=== PATIENT | female | born 1990 | race Caucasian/White ===

== ENCOUNTER 2017-12-31 13:36 | Emergency (ER) | payer MEDICAID ==
[~2017-12-31] VITALS: Ht 167.6 cm; Wt 63.5 kg
[~2017-12-31 13:36] MED LIST: DOCU-143 PO; ESCI10TA PO; HYDR-3720 PO; IBP800T PO; IBUP-1780 PO; PREN1TAB39 PO
[2017-12-31] MEDS ORDERED: CLIN300C11 (13:55)
--- NOTE | 2017-12-31 14:40 | ED EENT ---
History of Present Illness General Chief Complaint: Dental Problems/Pain Stated Complaint: DENTAL PAIN Nursing Triage Note: TO ROOM WITH MOTHER HAS BEEN TREATED WITH TOOTH ACHE WITH CLINDAMYCIN CON'T TO HAVE PAIN AND SELLING IN FACE. HAS APPOINTMENT ON JANUARY 12 WITH DENTIST. Source: patient, family Exam Limitations: no limitations (YOHANNES GREENE) History of Present Illness Date Seen by Provider: Dec 31, 2017 Time Seen by Provider: 14:37 Initial Comments Patient is a 27-year-old female who presents to the emergency room with right upper dental pain. The patient is currently on a course of clindamycin she is on day 5 of 7 days. She has an appointment on the for dental extractions. She reports that last night her tooth broke off more causing her more pain. Timing/Duration: abrupt, yesterday Severity: mild Location: dental Prearrival Treatment: over the counter meds Associated Symptoms: No denies symptoms, No change in hearing, No cough; facial pain/swelling (YOHANNES GREENE) Allergies and Home Medications Allergies Coded Allergies: Codeine (Unverified Allergy, Unknown, 03/19/10) Erythromycin Base (Unverified Allergy, Unknown, 03/19/10) Penicillins (Verified Allergy, Unknown, 03/19/10) Uncoded Allergies: BEE STINGS (Allergy, Unknown, 03/19/10) Home Medications Escitalopram Oxalate 10 Mg Tablet, 10 MG PO DAILY, (Reported) Patient Home Medication List Home Medication List Reviewed: Yes (YOHANNES GREENE) Review of Systems Constitutional: see HPI; No chills, No fever Eyes: See HPI; Denies Blindness; Blurred Vision; Denies Photophobia, Denies Other (denies double vision) Ears: See HPI; Denies Pain Nose: see HPI; denies clots, denies congestion, denies epistaxis, denies pain Mouth: see HPI, pain, swelling Throat: see HPI; denies pain Respiratory: see HPI; No cough, No dyspnea on exertion Cardiovascular: see HPI; No chest pain Gastrointestinal: see HPI Musculoskeletal: see HPI; No back pain, No gout Skin: see HPI; No change in color Neurological: Denies Anxiety Hematologic/Lymphatic: See HPI; Denies Anemia Immunological/Allergic: see HPI; denies food allergy (YOHANNES GREENE) All Other Systems Reviewed Negative Unless Noted: Yes (BERNOT,YOHANNES STUDENT) Past Rizatfe-Wamdpr-Yjoyga Hx Past Med/Social Hx: Reviewed Nursing Past Med/Soc Hx (YOHANNES GREENE) Patient Social History Alcohol Use: Denies Use Recreational Drug Use: No Smoking Status: Never a Smoker Recent Foreign Travel: No Contact w/Someone Who Travel: No Recent Infectious Disease Expo: No Recent Hopitalizations: No (YOHANNES GREENE) Immunizations Up To Date Tetanus Booster (TDap): More than 5yrs PED Vaccines UTD: Yes (YOHANNES GREENE) Past Medical History Surgeries: Yes Appendectomy, Gallbladder, Tonsillectomy Respiratory: Yes Asthma Cardiac: No Neurological: No Reproductive Disorders: No Female Reproductive Disorders: Denies Sexually Transmitted Disease: No HIV/AIDS: No Gastrointestinal: No Musculoskeletal: No Endocrine: No Cancer: No Psychosocial: Yes Anxiety, Depression Integumentary: No Blood Disorders: No Adverse Reaction/Blood Tranf: No (YOHANNES GREENE) Family Medical History Reviewed Nursing Family Hx (YOHANNES GREENE) Seizure disorder 09 BROTHER, Onset:5 Physical Exam Vital Signs Vital Signs - First Documented 12/31/17 13:46 Temp 97.0 Pulse 79 Resp 18 B/P (MAP) 109/61 (77) Pulse Ox 99 O2 Delivery Room Air (YEE MARIE MD) General Appearance: WD/WN, no apparent distress Eyes: bilateral eye normal inspection, bilateral eye PERRL, bilateral eye EOMI Ears: bilateral ear auricle normal, bilateral ear canal normal, bilateral ear TM normal Nose: normal inspection, sinus tenderness Mouth/Throat: dental tenderness, other (dental caries and broken teeth on the right upper) Neck: non-tender, full range of motion Cardiovascular: normal peripheral pulses, regular rate, rhythm, no edema, no gallop Respiratory: chest non-tender, lungs clear, normal breath sounds Gastrointestinal: normal bowel sounds, non tender Neurologic/Psychiatric: alert, normal mood/affect, oriented x 3 Skin: normal color, warm/dry (YOHANNES GREENE STUDENT) Progress/Results/Core Measures Results/Orders Medications Given in ED Current Medications Medications Dose Ordered Sig/Josefina Route Start Time Stop Time Status Last Admin Dose Admin Benzocaine 1 ea ONCE ONCE XX 12/31/17 14:45 12/31/17 14:46 DC 12/31/17 15:26 1 EA Lidocaine HCl 5 ml ONCE ONCE PO 12/31/17 14:45 12/31/17 14:46 DC 12/31/17 15:26 5 ML (YEE MARIE MD) Vital Signs/I&O 12/31/17 13:46 Temp 97.0 Pulse 79 Resp 18 B/P (MAP) 109/61 (77) Pulse Ox 99 O2 Delivery Room Air (YEE MARIE MD) Blood Pressure Mean: 77 Progress Progress Note : Progress Note I have personally seen, interviewed and examined this patient along with Yohannes Greene APRN. I agree with his history, exam, assessment, and plan with the following additions. This patient is presently on clindamycin for pain related to dental decay in the right upper mouth. She has extraction scheduled for January 12. She has persistent significant pain despite treatment with antibiotics and use of ibuprofen, Aleve, and Tylenol. She has some mild blurry vision of the right eye but no diplopia and no impairment of extraocular movement. There is no erythema, heat, or significant edema around the right eye or maxilla. Oral exam shows severely decayed right upper teeth but no overt abscess. She is afebrile. Plan is to continue with antibiotics until the date of surgery. We will extend her prescription out until that time. Topical anesthetic will be trialed. Return precautions were discussed with patient. Exam is as follows: Gen.: Alert, oriented, no acute distress HEENT: normocephalic and atraumatic, tympanic membranes normal, no significant tenderness over the maxillary sinus, extraocular movements intact, vision grossly intact, severely decayed teeth in the upper mouth with out overt abscess Heart: Regular rate and rhythm without murmur Lungs: Clear to auscultation bilaterally with normal effort Lymph: No palpable periauricular or cervical lymph nodes (YEE MARIE MD) Departure Impression Primary Impression: Dental caries Disposition: 01 HOME, SELF-CARE Condition: Stable/Unchanged Departure-Patient Inst. Decision time for Depature: 15:56 (YOHANNES GREENE STUDENT) Referrals: [facility] (PCP/Family) Primary Care Physician Patient Instructions: Fractured Tooth (DC), Dental Pain (DC) Add. Discharge Instructions: Take medications as directed, follow up with your primary care provider within one week, call tomorrow morning for appointment time. When using the gauze pads that were provided in the emergency room do not fall asleep with one-year mouth as it could be a choking hazard and be careful when eating because more than your teeth might be numb and you could bite yourself. Return back to the emergency room for worsening pain, bleeding, swelling, or any other concerns as needed. All discharge instructions reviewed with patient and/or family. Voiced understanding. Images Mouth/Nose 1 - Caries, Fracture Tooth 2 - Caries, Fracture Tooth (YOHANNES GREENE STUDENT) YOHANNES GREENE Dec 31, 2017 14:40 YEE MARIE MD Dec 31, 2017 15:01
[2017-12-31] MEDS ORDERED: HURRICAINE EXT TUBE (BENZOCAINE) XX ONE (14:45)
[2017-12-31] MEDS ORDERED: LIDOCAINE 2% VISCOUS 15 ML UDC PO ONE (14:45)
[2017-12-31 16:05] VITALS: BP 109/74
== END 2017-12-31 16:05 | disposition home or self-care (01) ==
LOC: EDUNIT# 13:36 → ER 13:38
DX: K02.9 Dental caries, unspecified (principal); J45.909 Unspecified asthma, uncomplicated; F41.9 Anxiety disorder, unspecified; F32.9 Major depressive disorder, single episode, unspecified; Z88.5 Allergy status to narcotic agent; Z88.0 Allergy status to penicillin; Z90.89 Acquired absence of other organs
CPT/HCPCS: 99283

== ENCOUNTER 2018-02-21 15:09 | Emergency (ER) | payer MEDICAID ==
[~2018-02-21] VITALS: Ht 167.6 cm; Wt 65.8 kg
[~2018-02-21 15:09] MED LIST changes: +CLIN300C11
[2018-02-21] MEDS ORDERED: NS IV 1000 ML 1,000 ML IV ONE (16:17)
[2018-02-21 16:27] LABS: BASOPHILS % (AUTO) 0 % (0-10); EOSINOPHILS # (AUTO) 0.1 10^3/uL (0.0-0.3); EOSINOPHILS % (AUTO) 1 % (0-10); HEMATOCRIT 37 % (35-52); HEMOGLOBIN 13.2 G/DL (11.5-16.0); LYMPHOCYTES # (AUTO) 1.7 X 10^3 (1.0-4.0); LYMPHOCYTES % (AUTO) 19 % (12-44); MEAN CORPUSCULAR HEMOGLOBIN 30 PG (25-34); MEAN CORPUSCULAR HGB CONC 36 G/DL (32-36); MEAN CORPUSCULAR VOLUME 83 FL (80-99); MEAN PLATELET VOLUME 11.9 FL (7.4-10.4); MONOCYTES # (AUTO) 0.5 X 10^3 (0.0-1.0); MONOCYTES % (AUTO) 6 % (0-12); NEUTROPHILS # (AUTO) 6.5 X 10^3 (1.8-7.8); NEUTROPHILS % (AUTO) 74 % (42-75); PLATELET COUNT 180 10^3/uL (130-400); RED BLOOD COUNT 4.46 10^6/uL (4.35-5.85); RED CELL DISTRIBUTION WIDTH 13.8 % (10.0-14.5); WHITE BLOOD COUNT 8.9 10^3/uL (4.3-11.0)
--- NOTE | 2018-02-21 16:34 | ED EENT ---
History of Present Illness General Chief Complaint: Facial Problems Stated Complaint: FACE INFECTION Nursing Triage Note: PT AMB TO ROOM #6 W/O DIFFICULTY. A&OX4. CO FACIAL CYST SWELLING. PT REPORTS IN 2016 SHE NOTICED FACIAL SWELLINFG UNDER RT EYE WHICH SHE RECENTLY FOUND OUT TO BE A CYST IN HER SINUS. PT REPORTS SHE BEGAN TO HAVE SWELLING NOTED TO CYST AREA (UNDER RT EYE) ON 02/19/18 THAT HAS BEEN STEADILY INCREASING SINCE. PT WAS SEEN A [facility] DENTAL OFFICE THIS AFTER NOON AND DENTIST REFERRED HER TO COME TO ED, AND THAT IS WAS NOTHING DENTAL REALTED. PT REPORTS XRAYS OF MOUTH WERE TAKEN. PT DENIES PAIN TO AREA. AREA NOTED TO BE SWOLLEN AND RAISED. PT REPORTS VISUAL CHANGES SINCE AREA HAS BEGAN TO INCREASE IN SIZE. DENIES RECENT FEVER OR CHILLS. Source: patient, family (Mother) (YEE YATES STUDENT) History of Present Illness Date Seen by Provider: Feb 21, 2018 Time Seen by Provider: 16:09 Initial Comments Seen and evaluated. Patient presents with facial swelling under right eye that began late on 02/19 that she noticed significantly worsened overnight from 02/20-02/21. Patient reports that for the last year she has had increased right facial pain with seasonal allergies or colds. She came to the ED in late December due to dental pain and was informed at this visit that she had a right sinus abscess. Upon awakening with increased facial swelling this morning, she went to her dentist who took facial xrays, informed her that she had dental carries significant enough to necessitate tooth extraction in the near future but no dental abscesses, and told her to come to the ED. Patient admits to transient blurriness and loss of vision, fatigue all day, lightheadedness, the sensation of sinus fullness on the right, tenderness to palpation of right maxillary sinus area, tenderness to palpation of right ear. Patient's mother states that the patient has acted with decreased mental acuity all day. Patient says that symptoms worsen when she coughs, flexes forward, and with other changes of position. Symptoms improve with rest. Timing/Duration: this morning Severity: moderate Location: eye (R) Prearrival Treatment: no prearrival treatment Modifying Factors: Worse With Activity, Worse With Coughing; Improves With Lying Down, Improves With Rest Associated Symptoms: facial pain/swelling; No fever; tooth pain (TRUDY,YEE MED STUDENT) Allergies and Home Medications Allergies Coded Allergies: Codeine (Unverified Allergy, Unknown, 03/19/10) Erythromycin Base (Unverified Allergy, Unknown, 03/19/10) Penicillins (Verified Allergy, Unknown, 03/19/10) Uncoded Allergies: BEE STINGS (Allergy, Unknown, 03/19/10) Home Medications Escitalopram Oxalate 10 Mg Tablet, 10 MG PO DAILY, (Reported) Patient Home Medication List Home Medication List Reviewed: Yes (YEE YATES) Home Medication List Reviewed: Yes (HAROON OJEDA MD) Review of Systems Eyes: Blurred Vision, Photophobia, Vision Changes Ears: Pain (Pain in right ear ) Nose: no symptoms reported Throat: no symptoms reported Respiratory: no symptoms reported Cardiovascular: no symptoms reported Gastrointestinal: no symptoms reported Skin: see HPI Neurological: No Symptoms Reported Hematologic/Lymphatic: No Symptoms Reported (YEE YATES) Constitutional: No chills, No fever Eyes: Other (swelling around the right eye and cheek.) Mouth: pain, swelling Throat: denies pain, denies swelling (HAROON OJEDA MD) All Other Systems Reviewed Negative Unless Noted: Yes (HAROON OJEDA MD) Past Zzurvco-Qgoogd-Jviiwi Hx Past Med/Social Hx: Reviewed Nursing Past Med/Soc Hx (HAROON OJEDA MD) Patient Social History Alcohol Use: Denies Use Recreational Drug Use: No Smoking Status: Former Smoker Type Used: Cigarettes 2nd Hand Smoke Exposure: No Recent Foreign Travel: No Contact w/Someone Who Travel: No Recent Infectious Disease Expo: No Recent Hopitalizations: No Physical Abuse: No Sexual Abuse: No (YEE YATES) Immunizations Up To Date Tetanus Booster (TDap): More than 5yrs PED Vaccines UTD: Yes (YEE YATES) Past Medical History Surgeries: Yes Appendectomy, Gallbladder, Tonsillectomy Respiratory: Yes Asthma Cardiac: Yes Syncope (Syncopal episodes when riding rollercoasters) Neurological: No Reproductive Disorders: No Female Reproductive Disorders: Denies Sexually Transmitted Disease: No HIV/AIDS: No Gastrointestinal: No Musculoskeletal: No Endocrine: No Cancer: No Psychosocial: Yes Anxiety, Depression Nursing Suicide Risk Score: 0 Integumentary: No Blood Disorders: No Adverse Reaction/Blood Tranf: No (YEE YATES STUDENT) Family Medical History Reviewed Nursing Family Hx (HAROON OJEDA MD) Seizure disorder 09 BROTHER, Onset:5 Heart Disease, Diabetes, Lung Disease (YEE YATES STUDENT) Physical Exam Vital Signs Vital Signs - First Documented 02/21/18 15:40 Temp 97.9 Pulse 68 Resp 16 B/P (MAP) 122/73 (89) Pulse Ox 100 O2 Delivery Room Air (HAROON OJEDA MD) Height, Weight, BMI Height: 5'6.00" Weight: 145lbs. oz. 65.415940ew; 25.18 BMI Method:Stated General Appearance: mild distress Eyes: left eye normal inspection; bilateral eye PERRL, bilateral eye EOMI, bilateral eye vision changes Ears: right ear TM red; left ear auricle normal (Right auricle tender to palpation), left ear TM normal Nose: normal inspection Mouth/Throat: pharynx normal, dental tenderness, other (Dental carries right upper teeth) Cardiovascular: normal peripheral pulses, regular rate, rhythm, no edema, no gallop, no murmur Respiratory: chest non-tender, lungs clear, normal breath sounds, no respiratory distress, no accessory muscle use Gastrointestinal: normal bowel sounds, non tender, soft, no organomegaly, no pulsatile mass, tenderness, spleenomegaly (YEE YATES STUDENT) General Appearance: WD/WN Eyes: right eye other (swelling of the lower lid and cheek on the right with mild erythema.) Mouth/Throat: other (Dental carries right upper teeth near canines and premolar ) Neck: full range of motion, supple Cardiovascular: regular rate, rhythm, no murmur Respiratory: lungs clear, normal breath sounds Neurologic/Psychiatric: alert, oriented x 3 Skin: warm/dry, other (swelling to the right cheek and right lower lid with some edema and mild erythema but does not cross to the lip or nose.) (HAROON OJEDA MD) Progress/Results/Core Measures Results/Orders Lab Results Laboratory Tests Test 02/21/18 15:55 Range/Units White Blood Count 8.9 4.3-11.0 10^3/uL Red Blood Count 4.46 4.35-5.85 10^6/uL Hemoglobin 13.2 11.5-16.0 G/DL Hematocrit 37 35-52 % Mean Corpuscular Volume 83 80-99 FL Mean Corpuscular Hemoglobin 30 25-34 PG Mean Corpuscular Hemoglobin Concent 36 32-36 G/DL Red Cell Distribution Width 13.8 10.0-14.5 % Platelet Count 180 130-400 10^3/uL Mean Platelet Volume 11.9 H 7.4-10.4 FL Neutrophils (%) (Auto) 74 42-75 % Lymphocytes (%) (Auto) 19 12-44 % Monocytes (%) (Auto) 6 0-12 % Eosinophils (%) (Auto) 1 0-10 % Basophils (%) (Auto) 0 0-10 % Neutrophils # (Auto) 6.5 1.8-7.8 X 10^3 Lymphocytes # (Auto) 1.7 1.0-4.0 X 10^3 Monocytes # (Auto) 0.5 0.0-1.0 X 10^3 Eosinophils # (Auto) 0.1 0.0-0.3 10^3/uL Basophils # (Auto) 0.0 0.0-0.1 10^3/uL Sodium Level 140 135-145 MMOL/L Potassium Level 3.6 3.6-5.0 MMOL/L Chloride Level 107 98-107 MMOL/L Carbon Dioxide Level 27 21-32 MMOL/L Anion Gap 6 5-14 MMOL/L Blood Urea Nitrogen 9 7-18 MG/DL Creatinine 0.76 0.60-1.30 MG/DL Estimat Glomerular Filtration Rate > 60 BUN/Creatinine Ratio 12 Glucose Level 102 70-105 MG/DL Calcium Level 9.9 8.5-10.1 MG/DL Corrected Calcium 9.6 8.5-10.1 MG/DL Total Bilirubin 0.6 0.1-1.0 MG/DL Aspartate Amino Transf (AST/SGOT) 14 5-34 U/L Alanine Aminotransferase (ALT/SGPT) < 6 0-55 U/L Alkaline Phosphatase 47 40-136 U/L C-Reactive Protein High Sensitivity 0.57 H 0.00-0.50 MG/DL Total Protein 6.9 6.4-8.2 GM/DL Albumin 4.4 3.2-4.5 GM/DL (HAROON OJEDA MD) My Orders Orders - HAROON OJEDA MD Cbc With Automated Diff (8/8/18 16:17) Comprehensive Metabolic Panel (02/21/18 16:17) Hs C Reactive Protein (02/21/18 16:17) Saline Lock/Iv-Start (02/21/18 16:17) Ns Iv 1000 Ml (Sodium Chloride 0.9%) (02/21/18 16:17) Urine Bedside (02/21/18 16:18) Ct Maxillofacial W (02/21/18 16:26) Iohexol Injection (Omnipaque 350 Mg/Ml 1 (02/21/18 16:45) Ns (Ivpb) (Sodium Chloride 0.9%) (02/21/18 16:45) Ceftriaxone Injection (Rocephin Injectio (02/21/18 17:45) Hydrocodone/Apap 5/325 Tablet (Lortab 5 (02/21/18 17:40) Ketorolac Injection (Toradol Injection) (02/21/18 17:40) (HAROON OJEDA MD) Medications Given in ED Current Medications Medications Dose Ordered Sig/Josefina Route Start Time Stop Time Status Last Admin Dose Admin Ceftriaxone Sodium 1000 mg/ Sodium Chloride 50 ml @ 100 mls/hr ONCE ONCE IV 02/21/18 17:45 02/21/18 18:14 DC 02/21/18 17:50 100 MLS/HR Iohexol 80 ml ONCE ONCE IV 02/21/18 16:45 02/21/18 16:46 DC 02/21/18 16:49 80 ML Sodium Chloride 250 ml ONCE ONCE IV 02/21/18 16:45 02/21/18 16:46 DC 02/21/18 16:49 80 ML Sodium Chloride 1,000 ml @ 0 mls/hr Q0M ONCE IV 02/21/18 16:17 02/21/18 16:19 DC 02/21/18 16:33 1,000 MLS/HR (HAROON OJEDA MD) Vital Signs/I&O 02/21/18 15:40 Temp 97.9 Pulse 68 Resp 16 B/P (MAP) 122/73 (89) Pulse Ox 100 O2 Delivery Room Air (HAROON OJEDA MD) Blood Pressure Mean: 89 Progress Progress Note : Progress Note I have seen and evaluated patient and agree with above except as indicated. Have directed the plan of care. Patient here with swelling to the right cheek and eyelid since yesterday and feels like it's worsening. Seen the dentist today in preparation for extraction to the teeth that are involved in the right upper involving the canine premolar area. They instructed her to come to the hospital for evaluation and treatment as indicated related to what was concerning for facial cellulitis. IV, labs and CT of the face was ordered after evaluation as above. Labs do not indicate any significant systemic infection and CT is as noted below. We will give Rocephin 1 g IV now and continue outpatient therapy with Omnicef. This was discussed with the patient who agrees. Patient was given Toradol and a hydrocodone tablet for pain. Discharged home with return precautions. Patient verbalize understanding instructions and agreement with plan. (HAROON OJEDA MD) Diagnostic Imaging Diagonstic Imaging: CT Plain Films/CT/US/NM/MRI: other Comments VIA [facility]. [place], [place] NAME: [facility] REC#: [id number] PT STATUS: REG ER : 1990 PHYSICIAN: HAROON OJEDA MD ADMIT DATE: 02/21/18/ER Draft Date of Exam:02/21/18 CT MAXILLOFACIAL W PROCEDURE: CT maxillofacial with contrast. TECHNIQUE: After intravenous administration of contrast, axial images were obtained through the face and reformatted into coronal and sagittal planes. INDICATION: Face infection, facial cyst swelling. COMPARISON: None. FINDINGS: No acute fracture is seen in the face. The zygomatic arches, pterygoid plates, orbits, and maxillary sinuses are intact. The mandible appears intact. No cortical erosion is seen. There is moderate focal soft tissue edema at the right infraorbital region, and extending down the right cheek. No drainable fluid collection is seen by CT. A small focus of gas seen is thought to be beneath the eyelid. No significant post septal inflammatory changes are seen at this time. The globe is intact. There is moderate mucosal thickening in the bilateral maxillary sinuses and mild in the sphenoid and right posterior ethmoid sinuses. IMPRESSION: 1. Moderate focal soft tissue edema in the right infraorbital region, extending down the right cheek. No drainable fluid collection or post septal inflammatory changes seen. No osseous erosion is seen. 2. Moderate mucosal thickening in the paranasal sinuses as described above. Dictated on workstation # [id number] Dict: 02/21/18 1708 Trans: 02/21/18 1723 [id number] Interpreted by: BRITTANY RODRIGUEZ MD Electronically signed by: (HAROON OJEDA MD) Departure Impression Primary Impression: Sinusitis, acute maxillary Qualified Codes: J01.00 - Acute maxillary sinusitis, unspecified Additional Impression: Cellulitis of face Disposition: HOME, SELF-CARE Condition: Improved Departure-Patient Inst. Decision time for Depature: 18:27 (HAROON OJEDA MD) Referrals: [facility] [place] (PCP/Family) Primary Care Physician Patient Instructions: Cellulitis (Skin Infection), Adult (DC), Sinusitis, Adult (DC) Add. Discharge Instructions: All discharge instructions reviewed with patient and/or family. Voiced understanding. Drink plenty of fluids. You may take ibuprofen 600 mg every 8 hours as needed for fever or pain. You may take the prescribed pain medicine for Tylenol/ acetaminophen 1000 mg every 8 hours as needed for pain. Do not take both his they both have acetaminophen in then. Follow-up with the dentist as scheduled. Follow up with your Dr. in a few days for recheck. Return for worse pain, fever, vomiting, increased swelling, increased redness or other concerns as needed. Scripts Hydrocodone Bit/Acetaminophen (Hydrocodone/Acetaminophen 5/325mg Tablet) 1 Tab Tab 1 EACH PO Q6H PRN for PAIN-MODERATE, #12 TAB 0 Refills Prov: HAROON OJEDA MD 02/21/18 Cefdinir (Cefdinir) 300 Mg Capsule 300 MG PO BID, #18 CAP 0 Refills Prov: HAROON OJEDA MD 02/21/18 YEE YATES MED STUDENT Feb 21, 2018 16:34 HAROON OJEDA MD Feb 21, 2018 17:55
[2018-02-21 16:40] LABS: ALANINE AMINOTRANSFERASE < 6 U/L (0-55); ALBUMIN 4.4 GM/DL (3.2-4.5); ALKALINE PHOSPHATASE 47 U/L (40-136); BILIRUBIN,TOTAL 0.6 MG/DL (0.1-1.0); BUN/CREATININE RATIO 12; CALCIUM 9.9 MG/DL (8.5-10.1); CARBON DIOXIDE 27 MMOL/L (21-32); CHLORIDE 107 MMOL/L (98-107); CREATININE SERUM 0.76 MG/DL (0.60-1.30); GFR ESTIMATED > 60; GLUCOSE 102 MG/DL (70-105); POTASSIUM 3.6 MMOL/L (3.6-5.0); SODIUM 140 MMOL/L (135-145); TOTAL PROTEIN 6.9 GM/DL (6.4-8.2)
[2018-02-21] MEDS ORDERED: NS 250 ML (IVPB) BAG IV ONE (16:45)
[2018-02-21] MEDS ORDERED: IOHEXOL 350 MG/ML 100 ML (OMNIPAQUE 350) VIAL IV ONE (16:45)
--- NOTE | 2018-02-21 17:23 | Diagnostic Imaging Report ---
PROCEDURE: CT maxillofacial with contrast. TECHNIQUE: After intravenous administration of contrast, axial images were obtained through the face and reformatted into coronal and sagittal planes. INDICATION: Face infection, facial cyst swelling. COMPARISON: None. FINDINGS: No acute fracture is seen in the face. The zygomatic arches, pterygoid plates, orbits, and maxillary sinuses are intact. The mandible appears intact. No cortical erosion is seen. There is moderate focal soft tissue edema at the right infraorbital region, and extending down the right cheek. No drainable fluid collection is seen by CT. A small focus of gas seen is thought to be beneath the eyelid. No significant post septal inflammatory changes are seen at this time. The globe is intact. There is moderate mucosal thickening in the bilateral maxillary sinuses and mild in the sphenoid and right posterior ethmoid sinuses. IMPRESSION: 1. Moderate focal soft tissue edema in the right infraorbital region, extending down the right cheek. No drainable fluid collection or post septal inflammatory changes seen. No osseous erosion is seen. 2. Moderate mucosal thickening in the paranasal sinuses as described above. Dictated by: Dictated on workstation # [id number]
[2018-02-21] MEDS ORDERED: HYDROcodone/APAP 5 MG/325 MG (LORTAB) TAB PO STA (17:40)
[2018-02-21] MEDS ORDERED: KETOROLAC 30 MG/ML VIAL IVP STA (17:40)
[2018-02-21] MEDS ORDERED: cefTRIAXone INJECTION 1,000 MG in NS (IVPB) 50 ML IV ONE (17:45)
[2018-02-21] MEDS ORDERED: ACHD5005 PO (18:29)
[2018-02-21] MEDS ORDERED: CEFD300C3 PO (18:29)
[2018-02-21 18:38] VITALS: BP 111/61
== END 2018-02-21 18:38 | disposition home or self-care (01) ==
LOC: EDUNIT# 15:09 → ER 15:10
DX: J01.00 Acute maxillary sinusitis, unspecified (principal); L03.211 Cellulitis of face; J45.909 Unspecified asthma, uncomplicated; F41.9 Anxiety disorder, unspecified; F32.9 Major depressive disorder, single episode, unspecified; Z88.1 Allergy status to other antibiotic agents; Z88.0 Allergy status to penicillin; Z88.6 Allergy status to analgesic agent; Z91.030 Bee allergy status; Z87.891 Personal history of nicotine dependence; Z90.49 Acquired absence of other specified parts of digestive tract
CPT/HCPCS: 36415; 70487; 80053; 84703; 85025; 86141; 96361; 96365; 96375

== ENCOUNTER 2018-11-07 22:48 | Emergency (ER) | payer SELFPAY ==
[~2018-11-07] VITALS: Ht 167.6 cm; Wt 63.5 kg
[~2018-11-07 22:48] MED LIST changes: +ACHD5005 PO; +CEFD300C3 PO
[2018-11-07] MEDS ORDERED: diphenhydrAMINE 25 MG TAB (BENADRYL) PO ONE (23:07)
[2018-11-07] MEDS ORDERED: methylPREDNISolone 40 MG/ML (DEPO MEDROL) VIAL ONE (23:07)
[2018-11-07] MEDS ORDERED: KETOROLAC 60 MG/2 ML VIAL ONE (23:07)
[2018-11-07] MEDS ORDERED: ACETAMINOPHEN 500 MG TAB (TYLENOL) ONE (23:08)
[2018-11-07] MEDS ORDERED: PROCHLORPERAZINE 10 MG TAB (COMPAZINE) ONE (23:08)
[2018-11-07 23:40] VITALS: BP 121/76
--- OUTSIDE RECORDS SUMMARY | 2018-11-07 23:51 | XMS REPORT | Continuity of Care Document ---
Author Organization Unknown Address Unknown Allergies Active Description Code Type Severity Reaction Onset Reported/Identified Relationship to Patient Clinical Status Yes erythromycin Drug Allergy N/ A N/A 03/19/2009 Yes Penicillins Drug Allergy N/A N/A 03/19/2009 Yes BEE STINGS BEE STINGS Unknown N/A 03/19/2010 Yes codeine [id number] Drug Allergy Unknown N/A 03/19/2010 Yes erythromycin base [id number] Drug Allergy Unknown N/A 03/19/2010 Yes Penicillins [id number] Drug Allergy Unknown N/A 03/19/2010 Medications There is no data. Problems Date Dx Coded Attending Type Code Diagnosis Diagnosed By 03/19/2009 MANOLO FLORES DO 787.01 NAUSEA WITH VOMITING 03/19/2009 MANOLO FLORES DO 787.91 DIARRHEA 03/19/2009 MANOLO FLORES DO 789.00 ABDOMINAL PAIN UNSPECIFIED SITE 03/19/2009 HARMONY MICHEL DDS 787.01 NAUSEA WITH VOMITING 03/19/2009 HARMONY MICHEL DDS 787.91 DIARRHEA 03/19/2009 HARMONY MICHEL DDS 789.00 ABDOMINAL PAIN UNSPECIFIED SITE 02/28/2011 MANOLO FLORES DO 724.5 BACK PAIN, GENERAL 02/28/2011 MANOLO FLORES DO 737.30 SCOLIOSIS (AND KYPHOSCOLIOSIS) IDIOPATHIC 02/28/2011 HARMONY MICHEL DDS 724.5 BACK PAIN, GENERAL 02/28/2011 HARMONY MICHEL DDS 737.30 SCOLIOSIS (AND KYPHOSCOLIOSIS) IDIOPATHIC 06/22/2011 MANOLO FLORES DO 305.1 NICOTINE DEPENDENCE 06/22/2011 MANOLO FLORES DO 493.92 ASTHMA WITH ACUTE EXACERBATION 06/22/2011 HARMONY MICHEL DDS 305.1 NICOTINE DEPENDENCE 06/22/2011 HARMONY MICHEL DDS 493.92 ASTHMA WITH ACUTE EXACERBATION 07/28/2011 MANOLO FLORES DO 465.9 UPPER RESPIRATORY INFECTION 07/28/2011 HARMONY MICHEL DDS 465.9 UPPER RESPIRATORY INFECTION 08/30/2011 MANOLO FLORES DO V25.12 Gynecologic Services Intrauterine Device (IUD) Removal 08/30/2011 MANOLO FLORES DO V76.2 Cervical Pap Smear 08/30/2011 HARMONY MICHEL DDS V25.12 Gynecologic Services Intrauterine Device (IUD) Removal 08/30/2011 HARMONY MICHEL DDS V76.2 Cervical Pap Smear 06/03/2013 MANOLO FLORES DO 719.46 PAIN IN JOINT INVOLVING LOWER LEG 06/03/2013 MANOLO FLORES DO 728.89 OTHER DISORDERS OF MUSCLE LIGAMENT AND FASCIA 06/03/2013 HARMONY MICHEL DDS 719.46 PAIN IN JOINT INVOLVING LOWER LEG 06/03/2013 HARMONY MICHEL DDS 728.89 OTHER DISORDERS OF MUSCLE LIGAMENT AND FASCIA 11/03/2013 KEVIN LOJA MD, Ot 648.91 OTH CURR COND-DELIVERED 11/03/2013 KEVIN LOJA MD, Ot 657.01 POLYHYDRAMNIOS,DEL W OR W/O MENTN ANTEPA 11/03/2013 KEVIN LOJA MD, Ot 664.01 DEL W 1 DEG LACERAT-DEL 11/03/2013 KEVIN LOJA MD, Ot V02.51 GROUP B STREPT CARRIER/SUSPECTED CARRIER 11/03/2013 KEVIN LOJA MD Ot V03.82 PROPHYLACTIC VACC AGAINST STREPTOCOCCUS 11/03/2013 KEVIN LOJA MD, Ot V27.0 DELIVER-SINGLE LIVEBORN 03/29/2015 KEVIN LOJA MD, Ot 305.70 AMPHETAMINE ABUSE-UNSPEC 03/29/2015 KEVIN LOJA MD, Ot 648.44 MENTAL DISORDER-POSTPART 03/29/2015 KEVIN LOJA MD, Ot F15.10 OTHER STIMULANT ABUSE, UNCOMPLICATED 03/29/2015 KEVIN LOJA MD, Ot O99.345 OTHER MENTAL DISORDERS COMPLICATING THE 03/29/2015 KEVIN LOJA MD, Ot V04.81 ND FOR PROPHYLACTIC VACCIN AND INOCULATI 03/29/2015 FREEDOM CAREY, KEVIN [place] Ot Z23 ENCOUNTER FOR IMMUNIZATION 12/31/2017 CYNTHIA CAREY, YEE [place] Ot F32.9 MAJOR DEPRESSIVE DISORDER, SINGLE EPISOD 12/31/2017 CYNTHIA CAREY, YEE [place] Ot F41.9 ANXIETY DISORDER, UNSPECIFIED 12/31/2017 CYNTHIA CAREY, YEE [place] Ot J45.909 UNSPECIFIED ASTHMA, UNCOMPLICATED 12/31/2017 CYNTHIA CAREY, YEE [place] Ot K02.9 DENTAL CARIES, UNSPECIFIED 12/31/2017 CYNTHIA CAREY, YEE [place] Ot K08.89 OTHER SPECIFIED DISORDERS OF TEETH AND S 12/31/2017 CYNTHIA CAREY, YEE [place] Ot Z88.0 ALLERGY STATUS TO PENICILLIN 12/31/2017 CYNTHIA CAREY, YEE [place] Ot Z88.5 ALLERGY STATUS TO NARCOTIC AGENT STATUS 12/31/2017 CYNTHIA CAREY, YEE [place] Ot Z90.89 ACQUIRED ABSENCE OF OTHER ORGANS 01/02/2018 CYNTHIA CAREY, YEE [place] Ot F32.9 MAJOR DEPRESSIVE DISORDER, SINGLE EPISOD 01/02/2018 CYNTHIA CAREY, YEE [place] Ot F41.9 ANXIETY DISORDER, UNSPECIFIED 01/02/2018 CYNTHIA CAREY, YEE [place] Ot J45.909 UNSPECIFIED ASTHMA, UNCOMPLICATED 01/02/2018 CYNTHIA CAREY, YEE [place] Ot K02.9 DENTAL CARIES, UNSPECIFIED 01/02/2018 CYNTHIA CAREY, YEE [place] Ot K08.89 OTHER SPECIFIED DISORDERS OF TEETH AND S 01/02/2018 CYNTHIA CAREY, YEE [place] Ot Z88.0 ALLERGY STATUS TO PENICILLIN 01/02/2018 CYNTHIA CAREY, YEE [place] Ot Z88.5 ALLERGY STATUS TO NARCOTIC AGENT STATUS 01/02/2018 CYNTHIA CAREY, YEE [place] Ot Z90.89 ACQUIRED ABSENCE OF OTHER ORGANS 02/21/2018 Ot F32.9 MAJOR DEPRESSIVE DISORDER, SINGLE EPISOD 02/21/2018 Ot F41.9 ANXIETY DISORDER, UNSPECIFIED 02/21/2018 Ot J01.00 ACUTE MAXILLARY SINUSITIS, UNSPECIFIED 02/21/2018 Ot J45.909 UNSPECIFIED ASTHMA, UNCOMPLICATED 02/21/2018 Ot L03.211 CELLULITIS OF FACE 02/21/2018 Ot R22.0 LOCALIZED SWELLING, MASS AND LUMP, HEAD 02/21/2018 Ot Z87.891 PERSONAL HISTORY OF NICOTINE DEPENDENCE 02/21/2018 Ot Z88.0 ALLERGY STATUS TO PENICILLIN 02/21/2018 Ot Z88.1 ALLERGY STATUS TO OTHER ANTIBIOTIC AGENT 02/21/2018 Ot Z88.6 ALLERGY STATUS TO ANALGESIC AGENT STATUS 02/21/2018 Ot Z90.49 ACQUIRED ABSENCE OF OTHER SPECIFIED PART 02/21/2018 Ot Z91.030 BEE ALLERGY STATUS Procedures Code Description Performed By Performed On 73.4 MEDICAL INDUCTION LABOR 11/01/2013 75.69 REPAIR OB LACERATION NEC 11/01/2013 Results Test Result Range Complete blood count (CBC) with automated white blood cell (WBC) differential - 02/21/18 15:55 Blood leukocytes automated count (number/volume) 8.9 10*3/uL 4.3-11.0 Blood erythrocytes automated count (number/volume) 4.46 10*6/uL 4.35-5.85 Venous blood hemoglobin measurement (mass/volume) 13.2 g/dL 11.5-16.0 Blood hematocrit (volume fraction) 37 % 35-52 Automated erythrocyte mean corpuscular volume 83 [foz_us] 80-99 Automated erythrocyte mean corpuscular hemoglobin (mass per erythrocyte) 30 pg 25-34 Automated erythrocyte mean corpuscular hemoglobin concentration measurement ( mass/volume) 36 g/dL 32-36 Automated erythrocyte distribution width ratio 13.8 % 10.0-14.5 Automated blood platelet count (count/volume) 180 10*3/uL 130-400 Automated blood platelet mean volume measurement 11.9 [foz_us] 7.4-10.4 Automated blood neutrophils/100 leukocytes 74 % 42-75 Automated blood lymphocytes/100 leukocytes 19 % 12-44 Blood monocytes/100 leukocytes 6 % 0-12 Automated blood eosinophils/100 leukocytes 1 % 0-10 Automated blood basophils/100 leukocytes 0 % 0-10 Blood neutrophils automated count (number/volume) 6.5 10*3 1.8-7.8 Blood lymphocytes automated count (number/volume) 1.7 10*3 1.0-4.0 Blood monocytes automated count (number/volume) 0.5 10*3 0.0-1.0 Automated eosinophil count 0.1 10*3/uL 0.0-0.3 Automated blood basophil count (count/volume) 0.0 10*3/uL 0.0-0.1 Comprehensive metabolic panel - 02/21/18 15:55 Serum or plasma sodium measurement (moles/volume) 140 mmol/L 135-145 Serum or plasma potassium measurement (moles/volume) 3.6 mmol/L 3.6-5.0 Serum or plasma chloride measurement (moles/volume) 107 mmol/L 98-107 Carbon dioxide 27 mmol/L 21-32 Serum or plasma anion gap determination (moles/volume) 6 mmol/L 5-14 Serum or plasma urea nitrogen measurement (mass/volume) 9 mg/dL 7-18 Serum or plasma creatinine measurement (mass/volume) 0.76 mg/dL 0.60-1.30 Serum or plasma urea nitrogen/creatinine mass ratio 12 NRG Serum or plasma creatinine measurement with calculation of estimated glomerular filtration rate > NRG Serum or plasma glucose measurement (mass/volume) 102 mg/dL 70-105 Serum or plasma calcium measurement (mass/volume) 9.9 mg/dL 8.5-10.1 Serum or plasma total bilirubin measurement (mass/volume) 0.6 mg/dL 0.1-1.0 Serum or plasma alkaline phosphatase measurement (enzymatic activity/volume) 47 U/L 40-136 Serum or plasma aspartate aminotransferase measurement (enzymatic activity/ volume) 14 U/L 5-34 Serum or plasma alanine aminotransferase measurement (enzymatic activity/volume ) < U/L 0-55 Serum or plasma protein measurement (mass/volume) 6.9 g/dL 6.4-8.2 Serum or plasma albumin measurement (mass/volume) 4.4 g/dL 3.2-4.5 CALCIUM CORRECTED 9.6 mg/dL 8.5-10.1 Serum or plasma C reactive protein measurement (mass/volume) - 02/21/18 15:55 Serum or plasma C reactive protein measurement (mass/volume) 0.57 mg /dL 0.00-0.50 Encounters ACCT No. Visit Date/Time Discharge Status Pt. Type Provider Facility Loc./Unit Complaint [id number] 09/11/2013 10:20:00 09/11/2013 23:59:59 [facility] Outpatient HARMONY MICHEL DDS [id number] 06/03/2013 12:36:00 06/03/2013 23:59:59 [facility] Outpatient MANOLO FLORES DO [id number] 12/31/2017 13:38:00 12/31/2017 16:05:00 DIS Emergency CYNTHIA CAREY, YEE [place] [facility] ER DENTAL PAIN [id number] 03/27/2015 02:50:00 03/29/2015 18:27:00 DIS Inpatient KEVIN LOJA MD [facility] LDRP POST VAG DELIVERY [id number] 11/01/2013 07:07:00 11/03/2013 17:25:00 DIS Inpatient KEVIN LOJA MD [facility] WS INDUCTION [id number] 11/07/2018 22:48:00 ACT Emergency NETTE URIBE MD [facility] ER MIGRAINE [id number] 02/21/2018 16:27:00 Document Registration
--- OUTSIDE RECORDS SUMMARY | 2018-11-07 23:55 | XMS REPORT | Continuity of Care Document ---
Author Organization Unknown Address Unknown Allergies Active Description Code Type Severity Reaction Onset Reported/Identified Relationship to Patient Clinical Status Yes erythromycin Drug Allergy N/ A N/A 03/19/2009 Yes Penicillins Drug Allergy N/A N/A 03/19/2009 Yes BEE STINGS BEE STINGS Unknown N/A 03/19/2010 Yes codeine [id number] Drug Allergy Unknown N/A 03/19/2010 Yes erythromycin base [id number] Drug Allergy Unknown N/A 03/19/2010 Yes Penicillins [id number] Drug Allergy Unknown N/A 03/19/2010 Medications There [...] [place] Ot Z23 ENCOUNTER FOR IMMUNIZATION 12/31/2017 CYNTIHA CAREY, YEE [place] Ot F32.9 MAJOR DEPRESSIVE [...] Status Pt. Type Provider Facility Loc./Unit Complaint [id number] 09/11/2013 10:20:00 09/11/2013 23:59:59 [facility] Outpatient HARMONY MICHEL DDS [id number] 06/03/2013 12:36:00 06/03/2013 23:59:59 [facility] Outpatient MANOLO FLORES DO [id number] 12/31/2017 13:38:00 12/31/2017 16:05:00 DIS Emergency CYNTHIA CAREY, YEE [place] Via [facility] ER DENTAL PAIN [id number] 03/27/2015 02:50:00 03/29/2015 18:27:00 DIS Inpatient KEVIN LOJA MD [facility] LDRP POST VAG DELIVERY [id number] 11/01/2013 07:07:00 11/03/2013 17:25:00 DIS Inpatient KEVIN LOJA MD [facility] WS INDUCTION [id number] 11/07/2018 22:48:00 ACT Emergency NETTE URIBE MD Via [facility] ER MIGRAINE [id number] 02/21/2018 16:27:00 Document Registration
[2018-11-07] MEDS ORDERED: MONT4TAB8 PO (23:57)
[2018-11-07] MEDS ORDERED: VENL37.52 PO (23:57)
[2018-11-07] MEDS ORDERED: CETI-267 PO (23:57)
--- NOTE | 2018-11-07 23:59 | ED Headache ---
General Stated Complaint: MIGRAINE Source: patient, other Exam Limitations: no limitations History of Present Illness Date Seen by Provider: Nov 07, 2018 Time Seen by Provider: 23:00 Initial Comments The patient presents to ER by private conveyance with her significant other and chief complaint of migraine headache. Says it is across to her front or head. She's had some watery eyes lots of allergies and continues to use her loratadine. She's been using Tylenol and ibuprofen for the past 3 days she's not been able to break her headache. She does not use triptan's. She has a history of headaches just like this. She is having some nausea with retching but no vomiting. No dysuria, chance of being . She says her last period was one week ago. Allergies and Home Medications Allergies Coded Allergies: Codeine (Unverified Allergy, Unknown, 03/19/10) Erythromycin Base (Unverified Allergy, Unknown, 03/19/10) Penicillins (Verified Allergy, Unknown, 03/19/10) Uncoded Allergies: BEE STINGS (Allergy, Unknown, 03/19/10) Home Medications Cefdinir 300 Mg Capsule, 300 MG PO BID Prescribed by: HAROON OJEDA on 02/21/181828 Escitalopram Oxalate 10 Mg Tablet, 10 MG PO DAILY, (Reported) Hydrocodone Bit/Acetaminophen 1 Tab Tab, 1 EACH PO Q6H PRN for PAIN-MODERATE Prescribed by: HAROON OJEDA on 02/21/181828 Patient Home Medication List Home Medication List Reviewed: Yes Review of Systems Review of Systems Constitutional: No chills, No diaphoresis Eyes: Denies Blindness, Denies Blurred Vision Ears, Nose, Mouth, Throat: denies ear pain, denies ear discharge Respiratory: No cough, No short of breath Cardiovascular: No chest pain, No edema Gastrointestinal: No abdominal pain, No constipation, No diarrhea Genitourinary: No discharge, No dysuria : No LMP: Oct 31, 2018 Past Oxxnmln-Spqryc-Fxqorr Hx Patient Social History Alcohol Use: Denies Use Recreational Drug Use: No Smoking Status: Current Everyday Smoker Type Used: Cigarettes 2nd Hand Smoke Exposure: No Recent Foreign Travel: No Contact w/Someone Who Travel: No Recent Hopitalizations: No Immunizations Up To Date Tetanus Booster (TDap): More than 5yrs PED Vaccines UTD: Yes Past Medical History Surgeries: Yes Appendectomy, Gallbladder, Tonsillectomy Respiratory: Yes Asthma Cardiac: Yes Syncope Neurological: No Reproductive Disorders: No Female Reproductive Disorders: Denies Sexually Transmitted Disease: No HIV/AIDS: No Gastrointestinal: No Musculoskeletal: No Endocrine: No Cancer: No Psychosocial: Yes Anxiety, Depression Integumentary: No Blood Disorders: No Adverse Reaction/Blood Tranf: No Family Medical History Seizure disorder 09 BROTHER, Onset:5 Heart Disease, Diabetes, Lung Disease Physical Exam Vital Signs Capillary Refill : Height, Weight, BMI Height: 5'6.00" Weight: 145lbs. oz. 65.285474lt; 25.18 BMI Method:Stated General Appearance: WD/WN, no apparent distress HEENT: PERRL/EOMI, normal ENT inspection, TMs normal, pharynx normal Neck: non-tender, full range of motion, supple, normal inspection Cardiovascular: normal peripheral pulses, regular rate, rhythm, no edema Respiratory: lungs clear, normal breath sounds, no respiratory distress, no accessory muscle use Progress/Results/Core Measures Results/Orders My Orders Orders - NETTE URIBE Acetaminophen Tablet (Tylenol Tablet) (11/08/18 00:00) Prochlorperazine Tablet (Compazine Table (11/08/18 00:00) Ketorolac Injection (Toradol Injection) (11/08/18 00:00) Diphenhydramine Tablet (Benadryl Tablet) (11/08/18 00:00) Methylprednisolone Acetate Inj (Depo-Med (11/08/18 00:00) Progress Progress Note : Time: 23:58 Progress Note Tylenol, Toradol, Benadryl, Compazine, Depo-Medrol. Concerning for a sinus headache but she's not really tender to direct palpation and not having any discharge so antibiotics are probably not going to be helpful. Departure Impression Primary Impression: Headache around the eyes Disposition: 01 HOME, SELF-CARE Condition: Stable Departure-Patient Inst. Decision time for Depature: 23:29 Referrals: HERRERA BIANCHI APRN (PCP) Primary Care Physician [facility] (Family) Primary Care Physician Patient Instructions: Migraine Headache (DC) Add. Discharge Instructions: Drink plenty fluids and get some sleep. Take Tylenol and ibuprofen as necessary for headache. Follow up with your primary care doctor to discuss preventative methods. NETTE URIBE J Nov 07, 2018 23:59
[2018-11-08] MEDS ORDERED: diphenhydrAMINE 25 MG TAB (BENADRYL) PO ONE
[2018-11-08] MEDS ORDERED: ACETAMINOPHEN 500 MG TAB (TYLENOL) PO ONE
[2018-11-08] MEDS ORDERED: KETOROLAC 60 MG/2 ML VIAL IM ONE
[2018-11-08] MEDS ORDERED: PROCHLORPERAZINE 10 MG TAB (COMPAZINE) PO ONE
[2018-11-08] MEDS ORDERED: methylPREDNISolone 40 MG/ML (DEPO MEDROL) VIAL IM ONE
== END 2018-11-07 23:40 | disposition home or self-care (01) ==
LOC: ER 22:48 → EDUNIT# 23:43 → ER 23:43
DX: R51 Headache (principal); J45.909 Unspecified asthma, uncomplicated; F41.9 Anxiety disorder, unspecified; F32.9 Major depressive disorder, single episode, unspecified; F17.210 Nicotine dependence, cigarettes, uncomplicated; Z90.49 Acquired absence of other specified parts of digestive tract; Z90.89 Acquired absence of other organs; Z82.49 Family history of ischemic heart disease and other diseases of the circulatory system; Z88.5 Allergy status to narcotic agent; Z91.041 Radiographic dye allergy status; Z88.0 Allergy status to penicillin; Z86.69 Personal history of other diseases of the nervous system and sense organs
CPT/HCPCS: 99284

== ENCOUNTER 2019-09-11 19:48 | Emergency (ER) | payer SELFPAY ==
[~2019-09-11] VITALS: Ht 167.7 cm; Wt 72.6 kg
[~2019-09-11 19:48] MED LIST changes: +CETI-267 PO; +MONT4TAB8 PO; +VENL37.52 PO
--- NOTE | 2019-09-11 20:12 | ED Cough/URI ---
General Chief Complaint: Cough/Cold/Flu Symptoms Stated Complaint: SORE THROAT, BODY ACHES Nursing Triage Note: Pt amb to triage with c/o intermittent fever, sore throat, fatigue, body aches, congestion, nausea, et headache. Pt reports onset of symptoms to be 09/07/19. Pt reports she has been exposed to influenza. Two children @ side. Sepsis Screen: No Definite Risk Source: patient Exam Limitations: no limitations History of Present Illness Date Seen by Provider: Sep 11, 2019 Time Seen by Provider: 20:08 Initial Comments 29 year old female who presents to the ED with cold, cough, flu like symptoms. Reports fevers and exposure to influenza. Symptoms for 4 days. Associated Symptoms: cough, fever/chills, nasal congestion Allergies and Home Medications Allergies Coded Allergies: Codeine (Unverified Allergy, Unknown, 03/19/10) Erythromycin Base (Unverified Allergy, Unknown, 03/19/10) Penicillins (Verified Allergy, Unknown, 03/19/10) Uncoded Allergies: BEE STINGS (Allergy, Unknown, 03/19/10) Patient Home Medication List Home Medication List Reviewed: Yes Review of Systems Review of Systems Constitutional: see HPI, chills Respiratory: see HPI, cough All Other Systems Reviewed Negative Unless Noted: Yes Past Fiptrtb-Dfgmxf-Gmqgls Hx Past Med/Social Hx: Reviewed Nursing Past Med/Soc Hx Patient Social History Alcohol Use: Denies Use Recreational Drug Use: No Smoking Status: Never a Smoker Type Used: Cigarettes 2nd Hand Smoke Exposure: No Recent Foreign Travel: No Contact w/Someone Who Travel: No Recent Infectious Disease Expo: No Recent Hopitalizations: No Immunizations Up To Date Tetanus Booster (TDap): More than 5yrs PED Vaccines UTD: Yes Seasonal Allergies Seasonal Allergies: Yes Past Medical History Surgeries: Yes Appendectomy, Gallbladder, Tonsillectomy Respiratory: Yes Asthma Cardiac: Yes Syncope Neurological: No Reproductive Disorders: No Female Reproductive Disorders: Denies Sexually Transmitted Disease: No HIV/AIDS: No Genitourinary: No Gastrointestinal: No Musculoskeletal: No Endocrine: No HEENT: No Cancer: No Psychosocial: Yes Anxiety, Depression Integumentary: No Blood Disorders: No Adverse Reaction/Blood Tranf: No Family Medical History Reviewed Nursing Family Hx Seizure disorder 09 BROTHER, Onset:5 Heart Disease, Diabetes, Lung Disease Physical Exam Vital Signs - First Documented 09/11/19 19:55 Temp 36.7 Pulse 83 Resp 17 B/P (MAP) 100/66 (77) Pulse Ox 99 O2 Delivery Room Air Capillary Refill : Less Than 3 Seconds Height: 5'6.00" Weight: 140lbs. oz. 63.101037sv; 25.00 BMI Method:Stated General Appearance: WD/WN, no apparent distress HEENT: PERRL/EOMI, normal ENT inspection, TMs normal, pharynx normal Respiratory: chest non-tender, lungs clear, normal breath sounds, no respiratory distress, no accessory muscle use, respiratory distress Cardiovascular: normal peripheral pulses, regular rate, rhythm, no edema, no gallop, no JVD, no murmur Gastrointestinal: normal bowel sounds, non tender, soft, no organomegaly, no pulsatile mass Extremities: normal capillary refill Neurologic/Psychiatric: alert, normal mood/affect, oriented x 3 Skin: normal color Progress/Results/Core Measures Suspected Sepsis Recent Fever Within 48 Hours: Yes Infection Criteria Present: Suspected New Infection New/Unexplained Altered Menta: No Sepsis Screen: No Definite Risk SIRS Temperature: Pulse: 83 Respiratory Rate: 17 Blood Pressure 100 /66 Mean: 77 Results/Orders Lab Results Laboratory Tests Test 09/11/19 20:00 Range/Units Group A Streptococcus Screen NEGATIVE NEGATIVE Micro Results Microbiology 09/11/19 Influenza Types A,B Antigen (ALYSSA) - Final, Complete My Orders Orders - TONIO GREENE Influenza A And B Antigens (09/11/19 19:49) Rapid Strep A Screen (09/11/19 19:49) Vital Signs/I&O 09/11/19 19:55 Temp 36.7 Pulse 83 Resp 17 B/P (MAP) 100/66 (77) Pulse Ox 99 O2 Delivery Room Air Capillary Refill : Less Than 3 Seconds Blood Pressure Mean: 77 Departure Impression Primary Impression: Influenza-like symptoms Additional Impression: Acute pharyngitis Disposition: 01 HOME, SELF-CARE Condition: Stable/Unchanged Departure-Patient Inst. Decision time for Depature: 20:11 Referrals: HERRERA BIANCHI APRN (PCP) Primary Care Physician [facility] (Family) Primary Care Physician Patient Instructions: Cough, Runny Nose, and the Common Cold (DC), Viral Pharyngitis (DC) Add. Discharge Instructions: Symptomatic care as discussed. Tylenol and motrin for fevers. Push fluids. Foll ow up with PCP as needed. Return to ED for worsening symptoms or concerns as needed. All discharge instructions reviewed with patient and/or family. Voiced understanding. TONIO GREENE Sep 11, 2019 20:12
[2019-09-11] MEDS ORDERED: DEXAMETHASONE 10 MG/ML (DECADRON) 1 ML VIAL IM ONE (21:30)
[2019-09-11 21:33] VITALS: BP 100/66
== END 2019-09-11 21:33 | disposition home or self-care (01) ==
LOC: EDUNIT# 19:48 → ER 19:49
DX: J02.9 Acute pharyngitis, unspecified (principal); R05 Cough; R50.9 Fever, unspecified; Z88.5 Allergy status to narcotic agent; Z88.1 Allergy status to other antibiotic agents; Z88.0 Allergy status to penicillin; Z91.030 Bee allergy status; Z82.49 Family history of ischemic heart disease and other diseases of the circulatory system
CPT/HCPCS: 87430; 87804; 96372

== ENCOUNTER 2021-07-21 07:50 | Emergency (ER) | payer MEDICAID ==
[~2021-07-21] VITALS: Ht 167.7 cm; Wt 62.5 kg
[~2021-07-21 07:50] MED LIST changes: +CLIN-144; -CLIN300C11
[2021-07-21 08:00] VITALS: BP 103/54
[2021-07-21] MEDS ORDERED: ONDANSETRON 4 MG (ZOFRAN) ORAL DISSOLVE TAB PO STA (08:17)
--- NOTE | 2021-07-21 08:24 | ED Cough/URI ---
General Chief Complaint: COVID19 Suspect/Confirmed Stated Complaint: BALLESTEROS,BODY ACHES, FEVER Nursing Triage Note: PT AMB TO [facility] 9 WITH COMPLAINT OF COUGH, BALLESTEROS, FEVER BODY ACHES. STATES SYMPTOMS STARTED 2 DAYS AGO. WENT TO CLINIC YESTERDAY AND TESTED NEGATIVE FOR FLU, COVID, AND STREP. STATES COWORKER AND MOM BOTH HAD COVID RECENTLY. Source: patient Exam Limitations: no limitations History of Present Illness Date Seen by Provider: Jul 21, 2021 Time Seen by Provider: 08:10 Initial Comments Patient is a 30-year-old female who presents to the emergency room today with a chief complaint of mild cough, sinus pressure and pain, headache, fever at home, body aches. She denies diarrhea, burning with urination. She states her joints "hurt all over". Patient states she was vaccinated for Covid in May and June 2021. She tells me that her mother had Covid over [place]. She is not short of breath. She complains of yellow mucus when she coughs and blows her nose. She tells me she tested positive for influenza A 2 weeks ago. She smokes half pack cigarettes a day. Takes medications for depression and dgjc-ymt-fifocfm vitamins. All other review of systems reviewed and negative except as stated Timing/Duration: other (2 days ago) Severity/Quality: mild Prior Episodes/Possible Cause: illness exposure Associated Symptoms: cough, facial pain, fever/chills, headache, muscle aches, nasal congestion, nasal drainage, sore throat Allergies and Home Medications Allergies Coded Allergies: Penicillins (Verified Allergy, Unknown, 03/19/10) codeine (Unverified Allergy, Unknown, 03/19/10) erythromycin base (Unverified Allergy, Unknown, 03/19/10) Uncoded Allergies: BEE STINGS (Allergy, Unknown, 03/19/10) Patient Home Medication List Home Medication List Reviewed: Yes Cetirizine HCl (Zyrtec) 10 Mg Tab.rapdis, Unknown Dose PO, (Reported) Entered as Reported by: SHAHZAD SARAVIA on 11/07/18 8674 Doxycycline Hyclate (Doxycycline Hyclate) 100 Mg Capsule, 100 MG PO BID Prescribed by: LUCAS PATRICK on 07/21/21 0919 Montelukast Sodium (Singulair) 4 Mg Tab.chew, Unknown Dose PO, (Reported) Entered as Reported by: SHAHZAD SARAVIA on 11/07/182356 Ondansetron (Ondansetron Odt) 4 Mg Tab.rapdis, 4 MG PO Q8H PRN for nausea Prescribed by: LUCAS PATRICK on 07/21/21918 Venlafaxine HCl (Effexor Xr) 37.5 Mg Cap.er.24h, Unknown Dose PO, (Reported) Entered as Reported by: SHAHZAD SARAVIA on 11/07/182356 Review of Systems Review of Systems Constitutional: fever, malaise EENTM: nose congestion, throat pain Respiratory: cough; No short of breath Cardiovascular: no symptoms reported Gastrointestinal: No diarrhea; loss of appetite, nausea Genitourinary: no symptoms reported : No Musculoskeletal: joint pain Skin: no symptoms reported Psychiatric/Neurological: Headache All Other Systems Reviewed Negative Unless Noted: Yes Past Ivjpgob-Fftyus-Tadkpq Hx Patient Social History Tobacco Use?: Yes Tobacco type used: Cigarettes Smoking Status: Current Everyday Smoker Use of E-Cig and/or Vaping dev: No Substance use?: No Alcohol Use?: No Pt feels they are or have been: No Immunizations Up To Date Tetanus Booster (TDap): More than 5yrs PED Vaccines UTD: Yes Influenza Vaccine Up-to-Date: Yes; Up-to-Date First/Initial COVID19 Vaccinat: MAY 2021 Second COVID19 Vaccination Jonh: JUNE 2021 COVID19 Vaccine Count Room Clerk: KISHAN Seasonal Allergies Seasonal Allergies: Yes Past Medical History Surgeries: Yes Appendectomy, Gallbladder, Tonsillectomy Respiratory: Yes Asthma Cardiac: Yes Syncope Neurological: No Reproductive Disorders: No Female Reproductive Disorders: Denies Sexually Transmitted Disease: No HIV/AIDS: No Genitourinary: No Gastrointestinal: No Musculoskeletal: No Endocrine: No HEENT: No Cancer: No Psychosocial: Yes Anxiety, Depression Integumentary: No Blood Disorders: No Adverse Reaction/Blood Tranf: No Family Medical History Seizure disorder 09 BROTHER, Onset:5 Heart Disease, Diabetes, Lung Disease Physical Exam Vital Signs - First Documented 07/21/21 08:00 Temp 38.2 Pulse 98 Resp 16 B/P (MAP) 103/54 (70) Pulse Ox 99 O2 Delivery Room Air Capillary Refill : Less Than 3 Seconds Height: 5'6.00" Weight: 140lbs. oz. 63.326009xo; 22.00 BMI Method:Stated General Appearance: WD/WN, no apparent distress Eyes: Bilateral Eye Normal Inspection, Bilateral Eye PERRL, Bilateral Eye EOMI HEENT: PERRL/EOMI, TMs normal, other (very dry oral mucosa with adherant yellow green purulence on the posterior pharynx) Neck: full range of motion, supple, normal inspection Respiratory: lungs clear, normal breath sounds, no respiratory distress, no accessory muscle use Cardiovascular: regular rate, rhythm (91) Gastrointestinal: normal bowel sounds, non tender, soft Extremities: non-tender, normal inspection, no pedal edema, no calf tenderness, normal capillary refill Neurologic/Psychiatric: alert, normal mood/affect, oriented x 3 Skin: normal color, warm/dry Progress/Results/Core Measures Suspected Sepsis SIRS Temperature: Pulse: 98 Respiratory Rate: 16 Blood Pressure 103 /54 Mean: 70 Results/Orders Lab Results Laboratory Tests Test 07/21/21 08:06 07/21/21 08:58 Range/Units SARS-CoV-2 RNA (RT-PCR) Negative Negative My Orders Orders - LUCAS PATRICK MD Covid 19 Inhouse Test (07/21/21 08:17) Isolation Central Supply Req (07/21/21 08:17) Ondansetron Oral Dissolve Tab (Zofran (07/21/21 08:17) Ketorolac Injection (Toradol Injection) (07/21/21 08:30) Coronavirus Sars-Cov-2 So 2018 (07/21/21 08:58) Medications Given in ED Current Medications Medications Dose Ordered Sig/Josefina Route Start Time Stop Time Status Last Admin Dose Admin Ketorolac Tromethamine 30 mg ONCE ONCE IM 07/21/21 08:30 07/21/21 08:31 DC 07/21/21 08:46 30 MG Vital Signs/I&O 07/21/21 08:00 Temp 38.2 Pulse 98 Resp 16 B/P (MAP) 103/54 (70) Pulse Ox 99 O2 Delivery Room Air Capillary Refill : Less Than 3 Seconds Blood Pressure Mean: 70 Progress Note : Time: 09:19 Progress Note Patient reevaluated prior to discharge, states that she is feeling better. Resting comfortably. I reviewed the plan of care with the patient, she is comfortable with this. All questions are sought and answered. Departure Impression Primary Impression: Acute bronchitis Qualified Codes: J20.9 - Acute bronchitis, unspecified Additional Impressions: Tobacco dependence Person under investigation for COVID-19 Disposition: 01 HOME, SELF-CARE Condition: Stable Departure-Patient Inst. Decision time for Depature: 09:16 Referrals: HERRERA BIANCHI APRN (PCP) Primary Care Physician [facility] (Family) Primary Care Physician Patient Instructions: Acute Bronchitis, Adult (DC) Add. Discharge Instructions: Drink plenty of fluids to stay well-hydrated. Take the antibiotics I have prescribed as directed for a total of 10 days. Tvjg-aem-ovyppry DayQuil/NyQuil or other cold medicines to help with congestion and cough. Opth-ukk-xgxghtq ibuprofen, 3 pills which is 600 mg, every 6 hours with food as needed for headache/body aches. We will contact you if your " high sensitivity" Covid test comes back positive tomorrow. At this time your test is negative. you should isolate/quarantine until you get the result of the second test. Return to the Emergency Department for any new, concerning or emergent complaints. Follow up with [facility] as needed. Scripts Ondansetron (Ondansetron Odt) 4 Mg Tab.rapdis 4 MG PO Q8H PRN for nausea, #15 TAB Prov: LUCAS PATRICK MD 07/21/21 Doxycycline Hyclate (Doxycycline Hyclate) 100 Mg Capsule 100 MG PO BID, #20 CAP Prov: LUCAS PATRICK MD 07/21/21 Work/School Note: Work Release Form Date Seen in the Emergency Department: Jul 21, 2021 Return to Work: Jul 23, 2021 Copy Copies To 1: MANOLO FLORES KATHRYN M MD Jul 21, 2021 08:23
[2021-07-21] MEDS ORDERED: KETOROLAC 30 MG/ML VIAL IM ONE (08:30)
[2021-07-21] MEDS ORDERED: DOXY100C5 PO (09:19)
[2021-07-21] MEDS ORDERED: ONDA4TAB11 PO (09:19)
== END 2021-07-21 09:45 | disposition home or self-care (01) ==
LOC: EDUNIT# 07:50 → ER 07:51
DX: J20.9 Acute bronchitis, unspecified (principal); F41.9 Anxiety disorder, unspecified; F32.9 Major depressive disorder, single episode, unspecified; F17.210 Nicotine dependence, cigarettes, uncomplicated; F17.200 Nicotine dependence, unspecified, uncomplicated; Z20.822 Contact with and (suspected) exposure to COVID-19; Z79.899 Other long term (current) drug therapy
CPT/HCPCS: 87635; 87636; 99283

== ENCOUNTER 2022-03-02 23:07 | Emergency (ER) | payer MEDICAID ==
[~2022-03-02] VITALS: Ht 170 cm; Wt 74.1 kg
[~2022-03-02 23:07] MED LIST changes: +DOXY100C5 PO; +ONDA4TAB11 PO
[2022-03-02] MEDS ORDERED: RX-ONDANSETRON 4 MG ODT (ZOFRAN) PPK #4 PO STA (23:35)
--- NOTE | 2022-03-02 23:41 | ED EENT ---
History of Present Illness General Chief Complaint: Ear Problems Stated Complaint: BALLESTEROS,FEVER 102.5 Nursing Triage Note: PATIENT STATES YESTERDAY SHE HAD CONGESTION AND A SORE THROAT. STATES TONIGHT WORSENED TO PRESSURE IN EARS. STATES TOOK TYLENOL AND IBPUROFEN WITH NO RELIEF Source: patient Exam Limitations: no limitations History of Present Illness Date Seen by Provider: Mar 02, 2022 Time Seen by Provider: 23:19 Initial Comments Patient to the ER by private conveyance with her daughter and chief complaint that she has been having body aches fevers of 100.2, chills nausea without vomiting and runny nose since yesterday. No known sick contacts. She did just recently travel to another [facility]. She has an IUD in place. She has a headache. Last time she took any thing for pain was ibuprofen last night before she went to bed. She said it helped her sleep well. She is not having any neck stiffness, weakness numbness confusion blurry vision or double vision. Allergies and Home Medications Allergies Coded Allergies: Penicillins (Verified Allergy, Unknown, 03/19/10) codeine (Unverified Allergy, Unknown, 03/19/10) erythromycin base (Unverified Allergy, Unknown, 03/19/10) Uncoded Allergies: BEE STINGS (Allergy, Unknown, 03/19/10) Patient Home Medication List Home Medication List Reviewed: Yes Cetirizine HCl (Zyrtec) 10 Mg Tab.rapdis, Unknown Dose PO, (Reported) Entered as Reported by: SHAHZAD SARAVIA on 11/07/182356 Doxycycline Hyclate (Doxycycline Hyclate) 100 Mg Capsule, 100 MG PO BID Prescribed by: LUCAS PATRICK on 07/21/21918 Montelukast Sodium (Singulair) 4 Mg Tab.chew, Unknown Dose PO, (Reported) Entered as Reported by: SHAHZAD SARAVIA on 11/07/182356 Ondansetron (Ondansetron Odt) 4 Mg Tab.rapdis, 4 MG PO Q8H PRN for nausea Prescribed by: LUCAS PATRICK on 07/21/21918 Venlafaxine HCl (Effexor Xr) 37.5 Mg Cap.er.24h, Unknown Dose PO, (Reported) Entered as Reported by: SHAHZAD SARAVIA on 11/07/182356 Review of Systems Review of Systems Constitutional: see HPI, chills, fever, malaise Eyes: Denies Blindness, Denies Blurred Vision Ears: Denies Dizziness, Denies Pain Nose: denies clots, denies congestion Mouth: denies clots, denies pain, denies swelling Throat: denies pain, denies swelling Cardiovascular: No chest pain, No palpitations Gastrointestinal: No abdominal pain, No nausea, No vomiting : No Musculoskeletal: No back pain, No joint pain All Other Systems Reviewed Negative Unless Noted: Yes Past Smlxluk-Vxklrk-Nzrkzg Hx Patient Social History Tobacco Use?: No Use of E-Cig and/or Vaping dev: No Substance use?: No Immunizations Up To Date Tetanus Booster (TDap): More than 5yrs PED Vaccines UTD: Yes First/Initial COVID19 Vaccinat: MAY 2021 Second COVID19 Vaccination John: JUNE 2021 Seasonal Allergies Seasonal Allergies: Yes Past Medical History Surgery/Hospitalization HX: ASTHMA Surgeries: Yes Appendectomy, Gallbladder, Tonsillectomy Respiratory: Yes Asthma Cardiac: Yes Syncope Neurological: No Reproductive Disorders: No Female Reproductive Disorders: Denies Sexually Transmitted Disease: No HIV/AIDS: No Genitourinary: No Gastrointestinal: No Musculoskeletal: No Endocrine: No HEENT: No Cancer: No Psychosocial: Yes Anxiety, Depression Integumentary: No Blood Disorders: No Adverse Reaction/Blood Tranf: No Family Medical History Seizure disorder 09 BROTHER, Onset:5 Heart Disease, Diabetes, Lung Disease Physical Exam Vital Signs Vital Signs - First Documented 03/02/22 23:30 Temp 38.2 Pulse 103 Resp 18 B/P (MAP) 114/59 (77) Pulse Ox 95 O2 Delivery Room Air Height, Weight, BMI Height: 5'6.00" Weight: 140lbs. oz. 63.995473dp; 25.00 BMI Method:Stated General Appearance: WD/WN, no apparent distress Eyes: bilateral eye normal inspection, bilateral eye PERRL, bilateral eye EOMI Ears: bilateral ear auricle normal, bilateral ear canal normal, bilateral ear TM normal Nose: No normal inspection (Erythematous mucosa); other (Clear rhinorrhea) Mouth/Throat: No tonsillar swelling; other (Posterior retropharynx erythema/injection without exudate) Neck: non-tender, full range of motion, supple, normal inspection Cardiovascular: normal peripheral pulses, regular rate, rhythm Respiratory: lungs clear, normal breath sounds, no respiratory distress, no accessory muscle use Neurologic/Psychiatric: no motor/sensory deficits, alert, normal mood/affect, oriented x 3 Progress/Results/Core Measures Results/Orders Lab Results Laboratory Tests Test 03/02/22 23:29 Range/Units Influenza Type A (RT-PCR) Not Detected Not Detecte Influenza Type B (RT-PCR) Not Detected Not Detecte SARS-CoV-2 RNA (RT-PCR) Detected H Not Detecte My Orders Orders - NETTE URIBE Covid 19 Inhouse Test (03/02/22 23:21) Influenza A And B By Pcr (03/02/22 23:21) Ketorolac Injection (Toradol Injection) (03/02/22 23:45) Rx-Ondansetron Po (Rx-Zofran Po) (03/02/22 23:35) Medications Given in ED Current Medications Medications Dose Ordered Sig/Josefina Route Start Time Stop Time Status Last Admin Dose Admin Ketorolac Tromethamine 60 mg ONCE ONCE IM 03/02/22 23:45 03/02/22 23:46 DC 03/02/22 23:44 60 MG Vital Signs/I&O 03/02/22 23:30 Temp 38.2 Pulse 103 Resp 18 B/P (MAP) 114/59 (77) Pulse Ox 95 O2 Delivery Room Air Blood Pressure Mean: 77 Progress Progress Note : Time: 23:40 Progress Note The patient has nasopharyngitis. We will swab her for COVID and flu. We will give her Toradol and a take-home pack of ondansetron for her symptoms. We have recommended decongestants for her copious nasal rhinorrhea. Departure Impression Primary Impression: COVID-19 Disposition: 01 HOME, SELF-CARE Condition: Stable Departure-Patient Inst. Decision time for Depature: 23:58 Referrals: HERRERA BIANCHI APRN (PCP) Primary Care Physician [facility] (Family) Primary Care Physician Patient Instructions: COVID-19 (DC) Add. Discharge Instructions: Drink plenty of fluids. Tylenol 1000 mg every 8 hours as needed for body aches and fever. Ibuprofen 800 mg every 8 hours as needed for body aches or fever. Paxlovid twice a day with food for 5 days to help reduce severity of symptoms. Ondansetron 1 tablet every 6 hours as needed for nausea or vomiting. All discharge instructions reviewed with patient and/or family. Voiced understanding. Scripts Ondansetron (Ondansetron Odt) 4 Mg Tab.rapdis 4 MG PO Q6H PRN for NAUSEA/VOMITING, #8 TAB 0 Refills Prov: NETTE URIBE 03/03/22 Work/School Note: Work Release Form Date Seen in the Emergency Department: Mar 03, 2022 Return to Work: Mar 10, 2022 Restrictions: Return-No Fever (24hrs) NETTE URIBE Mar 02, 2022 23:41
[2022-03-02] MEDS ORDERED: KETOROLAC 60 MG/2 ML VIAL IM ONE (23:45)
[2022-03-03] MEDS ORDERED: ONDA4TAB11 PO
[2022-03-03 00:15] VITALS: BP 99/65
[2022-03-03] MEDS ORDERED: RX-NIRMATRELVIR/RITONAVIR (PAXLOVID) #30 TABS PO SCH (00:15)
== END 2022-03-03 00:16 | disposition home or self-care (01) ==
LOC: EDUNIT# 23:07 → ER 23:10
DX: U07.1 COVID-19 (principal)
CPT/HCPCS: 87636; 99284

== ENCOUNTER 2022-06-18 17:50 | Emergency (ER) | payer MEDICAID ==
[~2022-06-18] VITALS: Ht 170 cm; Wt 73.4 kg
--- NOTE | 2022-06-18 18:31 | ED Upper Extremity ---
General Chief Complaint: Trauma-Non Activation Stated Complaint: FALL, HIT HEAD AND SHOULDER, PAIN Nursing Triage Note: PT STATES HAVING A FALL MONDAY, HIT HER HEAD ON A FENCE POST, CC OF HEAD, NECK AND RT SHOULDER PAIN, NV ON MONDAY (ANGÉLICA SAGASTUME) History of Present Illness Date Seen by Provider: Jun 18, 2022 Time Seen by Provider: 18:10 Initial Comments 31 yo female with no pertinent past medical hx here for head, neck, shoulder pain. Pt reports that she fell on Monday. Was walking and slipped on ice and hit her head on wooden fence post. Denies any LOC and says she went to sleep right after fall. Pt reports constant 8/10 pain. Shoulder pain radiate down to her elbow, decrease ROM, and stiffness in her neck and shoulder. Denies any bruising or redness. 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 Pt has taken Tylenol/Ibuprofen with no relief and has taken one Hydrocodone with no relief. Pt is not on blood thinners, no hx of head trauma. No other complaints (ANGÉLICA SAGASTUME) Allergies and Home Medications Allergies Coded Allergies: Penicillins (Verified Allergy, Unknown, 03/19/10) codeine (Unverified Allergy, Unknown, 03/19/10) erythromycin base (Unverified Allergy, Unknown, 03/19/10) Uncoded Allergies: BEE STINGS (Allergy, Unknown, 03/19/10) Patient Home Medication List Home Medication List Reviewed: Yes (ANGÉLICA SAGASTUME) Cetirizine HCl (Zyrtec) 10 Mg Tab.rapdis, Unknown Dose PO, (Reported) Entered as Reported by: SHAHZAD SARAVIA on 11/07/18 3036 Cyclobenzaprine HCl (Cyclobenzaprine HCl) 10 Mg Tablet, 10 MG PO Q8H PRN for SPASMS Prescribed by: YEE CHAUHAN on 06/18/222054 Doxycycline Hyclate (Doxycycline Hyclate) 100 Mg Capsule, 100 MG PO BID Prescribed by: LUCAS PATRICK on 07/21/21 0919 Montelukast Sodium (Singulair) 4 Mg Tab.chew, Unknown Dose PO, (Reported) Entered as Reported by: SHAHZAD SARAVIA on 11/07/18 1157 Ondansetron (Ondansetron Odt) 4 Mg Tab.rapdis, 4 MG PO Q8H PRN for nausea Prescribed by: LUCAS PATRICK on 07/21/21 0919 Ondansetron (Ondansetron Odt) 4 Mg Tab.rapdis, 4 MG PO Q6H PRN for NAUSEA/VOMITING Prescribed by: NETTE URIBE on 03/03/22 0000 Ondansetron (Ondansetron Odt) 4 Mg Tab.rapdis, 4 MG SL Q4H PRN for NAUSEA/VOMITING Prescribed by: YEE CHAUHAN on 06/18/222054 Venlafaxine HCl (Effexor Xr) 37.5 Mg Cap.er.24h, Unknown Dose PO, (Reported) Entered as Reported by: SHAHZAD SARAVIA on 11/07/18 235 Review of Systems Constitutional: dizziness; No fever, No weakness EENTM: no symptoms reported Respiratory: no symptoms reported Cardiovascular: No chest pain, No syncope Gastrointestinal: nausea, vomiting Genitourinary: no symptoms reported : No Musculoskeletal: back pain (Rigtht upper back pain), muscle pain, muscle stiffness, neck pain Skin: No change in color, No lesions, No lumps Psychiatric/Neurological: Headache (Right frontal/temporal BALLESTEROS ) (ANGÉLICA SAGASTUME) Past Imeksdx-Hjfhgx-Esghbh Hx Patient Social History Tobacco Use?: Yes Smoking Status: Former Smoker Use of E-Cig and/or Vaping dev: Yes E-Cig or Vaping type used: Nicotine Substance use?: No Alcohol Use?: No (ANGÉLICA SAGASTUME) Immunizations Up To Date Tetanus Booster (TDap): More than 5yrs PED Vaccines UTD: Yes First/Initial COVID19 Vaccinat: MAY 2021 Second COVID19 Vaccination John: JUNE 2021 Third COVID19 Vaccination Date: MAY 2021 (ANGÉLICA SAGASTUME) Seasonal Allergies Seasonal Allergies: Yes (ANGÉLICA SAGASTUME) Past Medical History Surgery/Hospitalization HX: ASTHMA, GALLBLADDER, T & A, APPENDECTOMY Surgeries: Yes Appendectomy, Gallbladder, Tonsillectomy Respiratory: Yes Asthma Cardiac: Yes Syncope Neurological: No Last Menstrual Period: Jun 13, 2022 Reproductive Disorders: No Female Reproductive Disorders: Denies Sexually Transmitted Disease: No HIV/AIDS: No Genitourinary: No Gastrointestinal: No Musculoskeletal: No Endocrine: No HEENT: No Cancer: No Psychosocial: Yes Anxiety, Depression Integumentary: No Blood Disorders: No Adverse Reaction/Blood Tranf: No (ANGÉLICA SAGASTUME) Family Medical History Seizure disorder 09 BROTHER, Onset:5 Heart Disease, Diabetes, Lung Disease (ANGÉLICA SAGASTUME) Physical Exam Vital Signs Vital Signs - First Documented 06/18/22 17:54 Temp 36.8 Pulse 93 Resp 18 B/P (MAP) 127/82 (97) Pulse Ox 100 O2 Delivery Room Air (YEE MILTON MD) Vital Signs Capillary Refill : Less Than 3 Seconds (ANGÉLICA SAGASTUME) Height, Weight, BMI Height: 5'6.00" Weight: 140lbs. oz. 63.474122hq; 25.00 BMI Method:Stated General Appearance: WD/WN, no apparent distress HEENT: PERRL/EOMI, normal ENT inspection, TMs normal, pharynx normal Cardiovascular: regular rate, rhythm, no edema, no gallop Respiratory: chest non-tender, lungs clear, normal breath sounds, no respiratory distress, no accessory muscle use Back: no CVA tenderness, no vertebral tenderness, decreased range of motion Shoulder: normal inspection; No ecchymosis; limited ROM, pain Elbow/Forearm: normal inspection, non-tender, normal ROM Wrist: Yes normal inspection, Yes non-tender, Yes no evidence of injury, Yes normal ROM Hand: normal inspection, non-tender, no evidence of injury, normal ROM Neurologic/Tendon: normal sensation, normal motor functions, normal tendon functions 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, no motor/sensory deficits, alert, normal mood/affect, oriented x 3 Skin: normal color, warm/dry Lymphatic: no adenopathy (ANGÉLICA SAGASTUME) Progress/Results/Core Measures Results/Orders My Orders Orders - YEE MILTON MD Ct Head/Cervical Spine Wo (06/18/22 18:47) Ct Chest Wo (06/18/22 18:47) Shoulder, Right, 3 Views (06/18/22 18:47) Ondansetron Oral Dissolve Tab (Zofran (06/18/22 19:00) Ibuprofen Tablet (Motrin Tablet) (06/18/22 21:00) Cyclobenzaprine Tablet (Flexeril Tablet) (06/18/22 21:00) (YEE MILTON MD) Medications Given in ED Current Medications Medications Dose Ordered Sig/Josefina Route Start Time Stop Time Status Last Admin Dose Admin Cyclobenzaprine HCl 10 mg ONCE ONCE PO 06/18/22 21:00 06/18/22 21:01 DC 06/18/22 20:55 10 MG Ibuprofen 600 mg ONCE ONCE PO 06/18/22 21:00 06/18/22 21:01 DC 06/18/22 20:55 600 MG Ondansetron HCl 4 mg ONCE ONCE SL 06/18/22 19:00 06/18/22 19:01 DC 06/18/22 18:55 4 MG (YEE MILTON MD) Vital Signs/I&O 06/18/22 06/18/22 17:54 21:03 Temp 36.8 Pulse 93 92 Resp 18 18 B/P (MAP) 127/82 (97) 102/69 Pulse Ox 100 98 O2 Delivery Room Air Room Air (YEE MILTON MD) Blood Pressure Mean: 97 Progress Progress Note : Time: 18:41 Progress Note Pt seen and examined by Dr. Milton. Discussed risk and benefits of CT scan and pt would like to proceed. Pt denies any possible chance of . Pt has IUD. Right shoulder x-ray Zofran sublingual for nausea (ANGÉLICA SAGASTUME) Progress Note : Progress Note Patient was interviewed and examined by me personally. Due to the persistent symptoms over several days CT imaging was offered. Patient elected to proceed with CT. No acute bony or intracranial injuries were identified. She did have air and debris near the esophagus and trachea on the CT of the chest. This was discussed with Dr. Mendoza, radiologist. These findings were thought to most likely relate to a tracheal diverticulum or possibly an esophageal diverticulum. I discussed the situation with Dr. Alcocer who agreed. She did not note any significant chest pain or GI symptoms aside from some nausea and vomiting. She was advised to follow concussion precautions and see Dr. Alcocer in the clinic. Return precautions were reviewed. (YEE MILTON MD) Initial ECG Impression Date: Jun 18, 2022 (TANIKAANGÉLICA Marita) Diagnostic Imaging Diagonstic Imaging: CT Plain Films/CT/US/NM/MRI: chest Comments NAME: MINDY LEAVITT UIBLUEPRINT REC#: [id number] PT STATUS: REG ER : 1990 PHYSICIAN: YEE MILTON MD ADMIT DATE: 06/18/22/ER Draft Date of Exam:06/18/22 CT CHEST WO PROCEDURE: CT chest without contrast. TECHNIQUE: Multiple contiguous axial images were obtained through the chest without the use of intravenous contrast. Auto Exposure Controls were utilized during the CT exam to meet ALARA standards for radiation dose reduction. INDICATION: Fall with chest injury. Pain. COMPARISON: None. FINDINGS: Cardiomediastinal structures show normal heart size. There is no large pericardial effusion. No pathologically enlarged or morphologically abnormal adenopathy is seen within the mediastinum, nydia or axilla on this noncontrast study. Evaluation of the lung peacock demonstrates a 4 mm micronodule at the right apex (image 39, series 3). No other suspicious pulmonary nodules or masses are seen. The lungs are otherwise clear. There is no focal consolidation, large effusion or pneumothorax. Osseous structures show no acute abnormalities. No lytic or blastic bony lesions are seen. Included portions of the upper abdomen are unremarkable as well. IMPRESSION: No acute cardiopulmonary process. Unremarkable noncontrast CT of the chest. Dictated on workstation # [id number] Dict: 06/18/221921 Trans: 06/18/221931 [facility] [id number] Interpreted by: AMY MACKEY MD Electronically signed by: Diagonstic Imaging: Xray Plain Films/CT/US/NM/MRI: other (Right Shoulder) Comments NAME: MINDY LEAVITT UIBLUEPRINT REC#: [id number] PT STATUS: REG ER : 1990 PHYSICIAN: YEE MILTON MD ADMIT DATE: 06/18/22/ER Signed Date of Exam:06/18/22 SHOULDER, RIGHT, 3 VIEWS INDICATION: Shoulder pain. COMPARISON: None available. TECHNIQUE: Three radiographs of the right shoulder dated June 18, 2022. FINDINGS: The acromioclavicular joint is unremarkable. No acute fracture or dislocation. No destructive osseous process. Visualized right lung is clear. No suspicious radiopaque foreign body. IMPRESSION: No acute osseous abnormality. Dictated by: Dictated on workstation # [id number] Dict: 06/18/221911 Trans: 06/18/221938 [facility] [id number] Interpreted by: ADDISON SHAW MD Electronically signed by: ADDISON SHAW MD 06/18/221938 (ANGÉLICA SAGASTUME) Departure Impression Primary Impression: Concussion Qualified Codes: S06.0X0A - Concussion without loss of consciousness, initial encounter Additional Impressions: Fall on same level as cause of accidental injury Right shoulder injury Qualified Codes: S49.91XA - Unspecified injury of right shoulder and upper arm, initial encounter Abnormal chest CT Disposition: 01 HOME, SELF-CARE Condition: Improved Departure-Patient Inst. Decision time for Depature: 20:50 (YEE MILTON MD) Referrals: ANA NOLEN APRN (PCP) Primary Care Physician [facility] [place] ([place]) Primary Care Physician MAIKOL ALCOCER MD Patient Instructions: Concussion, Adult ED Add. Discharge Instructions: Observe mental and physical rest as much as possible until your concussion symptoms have resolved. Avoid any activity that could predispose you to further head injury for at least 7 days after concussion symptoms are gone. This includes contact sports, use of heights such as a ladder, bike riding, etc. If any activity causes worsening concussion symptoms such as nausea, headache, vision changes, irritability, etc., stop that activity and rest. You may use ibuprofen up to 600 mg every 6 hours and/or Tylenol (acetaminophen) up to 1000 mg every 6 hours as needed for pain. Use Zofran as prescribed for nausea or vomiting. For tense or spasming muscles you may use cyclobenzaprine as prescribed. Please be advised cyclobenzaprine may cause drowsiness. Drink plenty of clear liquids to stay well-hydrated. You had an abnormal finding of air around your trachea and esophagus on the CT scan. This finding likely represents a tracheal diverticulum which is an outpo uching of the tracheal tube. It is not likely related to your injury. However, if you develop worsening symptoms or new symptoms such as chest pain, shortness of breath, fevers, etc., return to the emergency room for further evaluation. Otherwise, follow-up with Dr. Alcocer (surgeon) in his office. Call on Monday for an appointment. All discharge instructions reviewed with patient and/or family. Voiced understanding. Scripts Cyclobenzaprine HCl (Cyclobenzaprine HCl) 10 Mg Tablet 10 MG PO Q8H PRN for SPASMS, #10 TAB 0 Refills Prov: YEE MILTON MD 06/18/22 Ondansetron (Ondansetron Odt) 4 Mg Tab.rapdis 4 MG SL Q4H PRN for NAUSEA/VOMITING, #10 TAB Prov: YEE MILTON MD 06/18/22 Medical Student Attestation and Attending Note: I have personally interviewed and examined this patient along with a Angélica Sagastume MS3. I have reviewed student documentation including history, physical, and assessments. I agree with the documentation except where otherwise noted. Exam: General: Alert, oriented, no acute distress, well developed HEENT: Normocephalic and atraumatic, posterior cervical spine tenderness and paraspinous muscle tenderness, minor swelling and tenderness over the right temporal region Heart: Regular rate and rhythm without murmur Lungs: Clear to auscultation bilaterally with normal effort Chest: No chest tenderness. Back: Tenderness medial to the right scapula, mild tenderness near the upper thoracic spine Extremities: Tenderness to palpation of the shoulder joint and pain with range of motion. Abduction limited to approximately 90 degrees secondary to pain. Distal exam unremarkable. Abdomen: Soft, nontender, nondistended, normal bowel sounds Neuropsych: Alert, oriented, no focal deficits Skin: Warm and dry without rashes, no ecchymosis (YEE MILTON MD) Copy Copies To 1: [facility]/ANGÉLICA VILCHIS Jun 18, 2022 18:31 YEE MILTON MD Jun 18, 2022 20:50
[2022-06-18] MEDS ORDERED: ONDANSETRON 4 MG (ZOFRAN) ORAL DISSOLVE TAB SL ONE (19:00)
--- NOTE | 2022-06-18 19:25 | Diagnostic Imaging Report ---
INDICATION: Shoulder pain. COMPARISON: None available. TECHNIQUE: Three radiographs of the right shoulder dated June 18, 2022. FINDINGS: The acromioclavicular joint is unremarkable. No acute fracture or dislocation. No destructive osseous process. Visualized right lung is clear. No suspicious radiopaque foreign body. IMPRESSION: No acute osseous abnormality. Dictated by: Dictated on workstation # [id number]
--- NOTE | 2022-06-18 19:32 | Diagnostic Imaging Report ---
PROCEDURE: CT chest without contrast. TECHNIQUE: Multiple contiguous axial images were obtained through the chest without the use of intravenous contrast. Auto Exposure Controls were utilized during the CT exam to meet ALARA standards for radiation dose reduction. INDICATION: Fall with chest injury. Pain. COMPARISON: None. FINDINGS: Cardiomediastinal structures show normal heart size. There is no large pericardial effusion. No pathologically enlarged or morphologically abnormal adenopathy is seen within the mediastinum, nydia or axilla on this noncontrast study. Evaluation of the lung peacock demonstrates a 4 mm micronodule at the right apex (image 39, series 3). No other suspicious pulmonary nodules or masses are seen. The lungs are otherwise clear. There is no focal consolidation, large effusion or pneumothorax. At the level of the thoracic inlet, there is soft tissue gas posterior the trachea to the right lateral midline. Area in question measures approximately 1.4 x 0.7 cm (image 29, series 3). There is no extension of the lower mediastinum. Osseous structures show no acute abnormalities. No lytic or blastic bony lesions are seen. Included portions of the upper abdomen are unremarkable as well. IMPRESSION: 1. Small amount of pre-vertebral gas within the upper chest at the thoracic inlet. Conceivably, this could be on the basis of tracheal or esophageal diverticulum. Given the history of trauma, tracheal injury cannot be excluded. Close clinical follow-up is advised. Direct visualization of the upper airway may be of benefit if clinical concern persists. 2. No other acute cardiopulmonary process. Unremarkable noncontrast CT of the chest. Dictated by: Dictated on workstation # [id number]
--- NOTE | 2022-06-18 19:42 | Diagnostic Imaging Report ---
PROCEDURE: CT head and CT cervical spine without contrast. TECHNIQUE: Multiple contiguous axial images were obtained through the brain and cervical spine without the use of intravenous contrast. Sagittal and coronal reformations through the cervical spine were then performed. Auto Exposure Controls were utilized during the CT exam to meet ALARA standards for radiation dose reduction. INDICATION: Trauma, pain. COMPARISON: None available. FINDINGS: No intracranial hemorrhage. No intracranial mass, mass effect, midline shift, herniation, hydrocephalus or extra-axial fluid collection. No CT evidence of an acute ischemic infarction. The visualized orbits are unremarkable. Scattered fluid and mucosal thickening within bilateral ethmoid air cells. Additional fluid versus mucosal thickening within the sphenoid sinus. The calvarium is intact. Alignment of the cervical spine is well maintained. Alignment of the atlantooccipital joint is well maintained. Vertebral body heights are well-maintained. Mild disc space height loss at C5/C6. No severe disc space height loss. No acute fracture or dislocation. No destructive osseous process. No severe osseous central canal or neural foraminal stenosis. No apical pneumothorax. Small gas lucencies are identified to the right of the trachea and esophagus within the partially visualized upper chest. This will also be evaluated on the CT of the chest, itself. The paraspinal soft tissues are otherwise unremarkable. IMPRESSION: No acute intracranial abnormality. No acute osseous abnormality of cervical spine with minimal degenerative changes present. Paranasal sinus disease. Gas lucencies with internal debris within the upper chest to the right of the trachea and esophagus. 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 Esophageal diverticulum would be an additional consideration; however, injury to the trachea or esophagus at this level is not completely excluded. Dictated by: Dictated on workstation # [id number]
[2022-06-18] MEDS ORDERED: CYCL10TA25 PO (20:55)
[2022-06-18] MEDS ORDERED: ONDA4TAB11 SL (20:55)
[2022-06-18] MEDS ORDERED: IBUPROFEN TABLET 200 MG TAB PO ONE (21:00)
[2022-06-18] MEDS ORDERED: CYCLOBENZAPRINE 10 MG (FLEXERIL) TAB PO ONE (21:00)
[2022-06-18 21:03] VITALS: BP 102/69
== END 2022-06-18 21:03 | disposition home or self-care (01) ==
LOC: EDUNIT# 17:50 → ER 17:52
DX: S06.0X0A Concussion without loss of consciousness, initial encounter (principal); S49.91XA Unspecified injury of right shoulder and upper arm, initial encounter; R91.8 Other nonspecific abnormal finding of lung field; F17.290 Nicotine dependence, other tobacco product, uncomplicated; Z88.5 Allergy status to narcotic agent; W00.0XXA Fall on same level due to ice and snow, initial encounter; W22.8XXA Striking against or struck by other objects, initial encounter; Y93.01 Activity, walking, marching and hiking
CPT/HCPCS: 70450; 71250; 72125; 73030

== ENCOUNTER → 2022-08-01 | Outpatient (CLI) | payer MEDICAID ==
[~2022-08-01] MED LIST changes: +CYCL10TA25 PO; +ONDA4TAB11 SL
--- NOTE | 2022-08-01 13:18 | Diagnostic Imaging Report ---
PROCEDURE: CT chest without contrast. TECHNIQUE: Multiple contiguous axial images were obtained through the chest without the use of intravenous contrast. Auto Exposure Controls were utilized during the CT exam to meet ALARA standards for radiation dose reduction. INDICATION: Tracheal abnormality COMPARISON: 06/18/2022 FINDINGS: Similar to the previous study with minimal punctate nodule in the apical aspect of the right upper lobe. Coarse interstitial markings are also seen in the lung apices bilaterally. Small amount of gas posterior lateral to the right of the trachea adjacent to the esophagus has not significantly changed. There is no evidence of new infiltrate. No significant pleural or pericardial fluid is identified. There is pectus excavatum. Gallbladder is surgically absent. IMPRESSION: Small collection of gas to the right of the trachea has not significantly changed. Considerations include possible esophageal or tracheal diverticulum. Fistula is not excluded although no air-fluid level is identified and there is no significant associated inflammation. If at all warranted, consideration could be given to esophagram for assessment. Dictated by: Dictated on workstation # [id number]
== END ==
LOC: RAD 11:58
PROVIDERS: ATTEND Otolaryngology Otolaryngology/Facial Plastic Surgery
DX: J39.8 Other specified diseases of upper respiratory tract (principal)
CPT/HCPCS: 71250

== ENCOUNTER → 2022-08-12 | Outpatient (CLI) | payer MEDICAID ==
[~2022-08-12] MED LIST changes: +BARIUM for suspension 96% w/w (Vanilla Silq Medium Density) PO ONE; +BARIUM for suspension 98% w/w (Vanilla Silq High Density) PO ONE
--- NOTE | 2022-08-12 12:40 | Diagnostic Imaging Report ---
INDICATION: Choking. TECHNIQUE: The patient ingested effervescent crystals as well as thin and thick barium and imaging over the esophagus was performed in multiple obliquities. FINDINGS: The esophagus has a smooth contour. No mass or stricture is seen. No esophageal diverticulum is detected. No hiatal hernia or gastroesophageal reflux was demonstrated. IMPRESSION: Unremarkable esophagram. Dictated by: Dictated on workstation # [id number]
== END ==
LOC: RAD 10:30
PROVIDERS: ATTEND Otolaryngology Otolaryngology/Facial Plastic Surgery
DX: Q39.6 Congenital diverticulum of esophagus (principal)
CPT/HCPCS: 74220

== ENCOUNTER 2022-08-28 02:21 | Emergency (ER) | payer MEDICAID ==
[~2022-08-28 02:21] MED LIST changes: -BARIUM for suspension 96% w/w (Vanilla Silq Medium Density) PO ONE; -BARIUM for suspension 98% w/w (Vanilla Silq High Density) PO ONE
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
[2022-08-28] MEDS ORDERED: TETANUS,DIPTH,PERTUSS P/F (BOOSTRIX) 0.5 ML VIAL IM ONE (03:00)
[2022-08-28] MEDS ORDERED: LIDOCAINE 1% INJ 10 ML VIAL INJ ONE (03:45)
[2022-08-28 04:03] VITALS: BP 122/79
[2022-08-28] MEDS ORDERED: RX-TRIMETH/SULFA. 160-800 MG (BACTRIM DS) TAB PPK#2 PO STA (04:03)
[2022-08-28] MEDS ORDERED: SULF1TAB38 PO (04:08)
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
== END 2022-08-28 04:21 | disposition home or self-care (01) ==
LOC: EDUNIT# 02:21 → ER 02:24
DX: S06.9X1A Unspecified intracranial injury with loss of consciousness of 30 minutes or less, initial encounter (principal); S01.111A Laceration without foreign body of right eyelid and periocular area, initial encounter; R40.2410 Glasgow coma scale score 13-15, unspecified time; F17.210 Nicotine dependence, cigarettes, uncomplicated; Z23 Encounter for immunization; Z88.1 Allergy status to other antibiotic agents; Z28.310 Unvaccinated for COVID-19; Y04.8XXA Assault by other bodily force, initial encounter
CPT/HCPCS: 12052; 70450; 70486; 72125; 90715

== ENCOUNTER 2022-09-02 16:53 | Emergency (ER) | payer MEDICAID ==
[~2022-09-02] VITALS: Ht 170.2 cm; Wt 73.0 kg
[~2022-09-02 16:53] MED LIST changes: +SULF1TAB38 PO
[2022-09-02 17:00] VITALS: BP 127/68
== END 2022-09-02 17:22 | disposition home or self-care (01) ==
LOC: EDUNIT# 16:53 → ER 16:54
DX: Z48.02 Encounter for removal of sutures (principal); Z28.310 Unvaccinated for COVID-19